=== PATIENT | male | born 1935 | race Two or more races ===

== ENCOUNTER 2018-07-11 17:26 | Inpatient (IN) | payer SELFPAY ==
[~2018-07-11] VITALS: Ht 167.6 cm; Wt 67.2 kg
[2018-07-11 17:30] VITALS: BP 102/70
[2018-07-11] MEDS ORDERED: NKM (17:34)
[2018-07-11] MEDS ORDERED: Ampicillin/Sulbactam Sod 3 GM in NS 110 ML IV SCH (17:45)
[2018-07-11] MEDS ORDERED: Naloxone 1mg/ml 2ml IVP ONE (17:45)
[2018-07-11 18:16] LABS: ANION GAP 13 mmol/L (5-15); BLOOD UREA NITROGEN 34 mg/dL (7-18); CALCIUM 9.5 MG/DL (8.5-10.1); CARBON DIOXIDE 23 MMOL/L (21-32); CHLORIDE 107 MMOL/L (98-107); CREATININE 2.1 MG/DL (0.55-1.30); HEMATOCRIT 41.9 % (42.0-52.0); HEMOGLOBIN 14.5 G/DL (14.2-18.0); MEAN CORPUSCULAR VOLUME 93 FL (80-99); PLATELET COUNT 161 K/UL (150-450); POTASSIUM 3.3 MMOL/L (3.5-5.1); RED CELL DISTRIBUTION WIDTH 11.1 % (11.6-14.8); SODIUM 143 MMOL/L (136-145)
[2018-07-11 18:32] LABS: ALANINE AMINOTRANSFERASE 50 U/L (12-78); ALBUMIN 3.3 G/DL (3.4-5.0); ALBUMIN/GLOBULIN RATIO 0.8 (1.0-2.7); ALKALINE PHOSPHATASE 61 U/L (46-116); ASPARTATE AMINO TRANSFERASE 41 U/L (15-37); BILIRUBIN,TOTAL 0.6 MG/DL (0.2-1.0); CKMB 1.6 NG/ML (0.0-3.6); CREATINE KINASE 214 U/L (26-308); WHITE BLOOD COUNT 22.7 K/UL (4.8-10.8)
--- NOTE | 2018-07-11 18:38 | Diagnostic Imaging Report ---
EXAM: XR Chest, 1 View CLINICAL HISTORY: AMS TECHNIQUE: Frontal view of the chest. COMPARISON: No relevant prior studies available. FINDINGS: Lungs: Subsegmental left base atelectasis.. Pleural space: Unremarkable. No pneumothorax. Heart: Unremarkable. No cardiomegaly. Mediastinum: Calcified aortic knob. Bones/joints: Unremarkable. IMPRESSION: Subsegmental left base atelectasis.
--- NOTE | 2018-07-11 18:43 | Diagnostic Imaging Report ---
EXAM: CT Head Without Intravenous Contrast CLINICAL HISTORY: AMS TECHNIQUE: Axial computed tomography images of the head/brain without intravenous contrast. CTDI is 70.38 mGy and DLP is 1393 mGy-cm One or more of the following dose reduction techniques were used: automated exposure control, adjustment of the mA and/or kV according to patient size, use of iterative reconstruction technique. COMPARISON: No relevant prior studies available. FINDINGS: Brain: No intracranial hemorrhage or mass effect. Involutional and microvascular ischemic changes Ventricles: Unremarkable. No ventriculomegaly. Bones/joints: Unremarkable. No acute fracture. Soft tissues: Unremarkable. Sinuses: Unremarkable as visualized. No acute sinusitis. Mastoid air cells: Unremarkable as visualized. No mastoid effusion. IMPRESSION: No acute intracranial process
--- NOTE | 2018-07-11 20:46 | Diagnostic Imaging Report ---
EXAM: CT Abdomen and Pelvis Without Intravenous Contrast CLINICAL HISTORY: ABD PAIN TECHNIQUE: Axial computed tomography images of the abdomen and pelvis without intravenous contrast. CTDI is 10.38 mGy and DLP is 574 mGy-cm One or more of the following dose reduction techniques were used: automated exposure control, adjustment of the mA and/or kV according to patient size, use of iterative reconstruction technique. COMPARISON: No relevant prior studies available. FINDINGS: Mild basilar atelectasis. Coronary atherosclerosis. Status post cholecystectomy. No clear biliary dilation. Pancreatic atrophy without acute inflammation. Left perinephric stranding is more pronounced than on the right side. Correlate for any signs or symptoms of pyelonephritis. No urolithiasis or hydronephrosis. Small mid zone right renal cyst. Fecal retention with perirectal edema. Suspect impaction with stercoral proctitis. No free air or abscess. Unremarkable appendix. Prostatomegaly without pathologic bladder distention. Small fatty umbilical hernia. No acute fracture. IMPRESSION: Fecal impaction with stercoral proctitis. Left perinephric stranding is more pronounced than right. Correlate for signs or symptoms of pyelonephritis. Other incidental findings as detailed above.
[2018-07-11] MEDS ORDERED: Lidocaine 1% Plain 30 ml INJ ONE (21:51)
[2018-07-11] MEDS ORDERED: Meropenem 1 GM in NS 55 ML IVPB SCH (22:00)
--- NOTE | 2018-07-11 22:39 | Diagnostic Imaging Report ---
EXAM: XR Chest, 1 View CLINICAL HISTORY: LINE TECHNIQUE: Frontal view of the chest. COMPARISON: No relevant prior studies available. FINDINGS: Lungs: Mild basilar atelectasis again noted. Pleural space: No pneumothorax. Heart: Unremarkable. No cardiomegaly. Mediastinum: Right internal jugular central venous catheter, tip repositioned Cavoatrial junction.. Bones/joints: Unremarkable. IMPRESSION: Appropriately positioned right IJ CVC. No pneumothorax.
[2018-07-11 22:45] VITALS: BP 123/109
[2018-07-11] MEDS: Enoxaparin 30mg Inj SUBQ SCH (23:24)
--- NOTE | 2018-07-11 23:46 | Emergency Room Report ---
History of Present Illness General Chief Complaint: General Complaint Source: Patient Present Illness HPI Patient is 82-year-old male brought in by EMS after increased altered mental status. Patient prior history of Alzheimer disease. He had prior history of similar symptoms when he had a urinary tract infection. Patient has the been noted to have increased confusion. The patient had been the previously had the surgery for prostate.The patient noted be full code.The history is obtained from EMS. Allergies: Coded Allergies: No Known Allergies (Unverified , 07/11/18) Patient History Past Medical History: see triage record Reviewed Nursing Documentation: PMH: Agreed; PSxH: Agreed Nursing Documentation-PM Past Medical History: No History, Except For History Of Psychiatric Problem: Yes - dementia Review of Systems All Other Systems: limited - by mental status Physical Exam Vital Signs Date Time Temp Pulse Resp B/P (MAP) Pulse Ox O2 Delivery O2 Flow Rate FiO2 07/11/18 17:22 97.8 110 18 102/70 97 Room Air 97.9 Sp02 EP Interpretation: reviewed, normal General Appearance: normal inspection, lethargic, Chronically Ill Head: atraumatic Eyes: bilateral eye other - pinpoint ENT: normal ENT inspection, hearing grossly normal, normal voice Neck: normal inspection, supple, no bony tend, limited range of motion Respiratory: normal inspection, lungs clear, normal breath sounds, no respiratory distress, no retraction, no wheezing Cardiovascular #1: regular rate, rhythm, no edema Gastrointestinal: normal inspection, normal bowel sounds, non tender, soft, no guarding, no hernia Genitourinary: no CVA tenderness Musculoskeletal: normal inspection, back normal, normal range of motion Neurologic: motor weakness, other - aphasic Psychiatric: normal inspection, judgement/insight normal, mood/affect normal Skin: normal inspection, normal color, no rash Procedures Critical Care Time Critical Care Time Patient had a critical medical condition which untreated could potentially result in life or limb threatening injury. Total critical care time excluding procedures approximately 45 minutes. Central Line Central Line : Consent: Emergent Central Line Lumen: triple Maximal Sterile Barrier Tech: yes cap, yes mask, yes sterile gown, yes sterile gloves, yes large sterile sheet, yes hand hygiene, yes chlorhexidine prep Central Line Postion: internal jugular (R) Anesthesia: local cc's of anesthesia: 3 Complications: none Central Line Post Position: sutured, good blood return, position confirmed w / CXR Attempts: One Patient Tolerated: Well Complications: None Medical Decision Making Diagnostic Impression: Primary Impression: Septic shock Additional Impressions: Acute renal failure (ARF) Dehydration ER Course Patient presented for fever. Differential diagnosis included wasn't limited to pneumonia, urinary tract infection, drug fever, allergic reaction, sepsis, cholecystitis, among others.Because of complexity of patient's case laboratory testing and imaging studies were ordered. The CT the head read by radiology showed atrophic changes without evident CVA or intracranial hemorrhage. Patient was given IV fluids he started on IV antibiotics after blood cultures. The central venous catheter was placed due to hypotension after consent from daughter the post procedure chest x-ray showed adequate line placement.The patient was noted to have slight improvement in his mental status after fluid bolus. Doctor Jose Arteaga was contacted for inpatient managment due to panel physician. Labs Test 07/11/18 17:35 07/11/18 22:00 White Blood Count 22.7 K/UL (4.8-10.8) Red Blood Count 4.50 M/UL (4.70-6.10) Hemoglobin 14.5 G/DL (14.2-18.0) Hematocrit 41.9 % (42.0-52.0) Mean Corpuscular Volume 93 FL (80-99) Mean Corpuscular Hemoglobin 32.2 PG (27.0-31.0) Mean Corpuscular Hemoglobin Concent 34.5 G/DL (32.0-36.0) Red Cell Distribution Width 11.1 % (11.6-14.8) Platelet Count 161 K/UL (150-450) Mean Platelet Volume 5.8 FL (6.5-10.1) Neutrophils (%) (Auto) % (45.0-75.0) Lymphocytes (%) (Auto) % (20.0-45.0) Monocytes (%) (Auto) % (1.0-10.0) Eosinophils (%) (Auto) % (0.0-3.0) Basophils (%) (Auto) % (0.0-2.0) Differential Total Cells Counted 100 Neutrophils % (Manual) 78 % (45-75) Lymphocytes % (Manual) 4 % (20-45) Monocytes % (Manual) 3 % (1-10) Eosinophils % (Manual) 0 % (0-3) Basophils % (Manual) 0 % (0-2) Band Neutrophils 15 % (0-8) Platelet Estimate Adequate Platelet Morphology Normal Red Blood Cell Morphology Normal Sodium Level 143 MMOL/L (136-145) Potassium Level 3.3 MMOL/L (3.5-5.1) Chloride Level 107 MMOL/L (98-107) Carbon Dioxide Level 23 MMOL/L (21-32) Anion Gap 13 mmol/L (5-15) Blood Urea Nitrogen 34 mg/dL (7-18) Creatinine 2.1 MG/DL (0.55-1.30) Estimat Glomerular Filtration Rate mL/min (>60) Glucose Level 137 MG/DL (74-106) Calcium Level 9.5 MG/DL (8.5-10.1) Total Bilirubin 0.6 MG/DL (0.2-1.0) Aspartate Amino Transf (AST/SGOT) 41 U/L (15-37) Alanine Aminotransferase (ALT/SGPT) 50 U/L (12-78) Alkaline Phosphatase 61 U/L (46-116) Total Creatine Kinase 214 U/L (26-308) Creatine Kinase MB 1.6 NG/ML (0.0-3.6) Creatine Kinase MB Relative Index 0.7 Troponin I 0.027 ng/mL (0.000-0.056) Total Protein 7.3 G/DL (6.4-8.2) Albumin 3.3 G/DL (3.4-5.0) Globulin 4.0 g/dL Albumin/Globulin Ratio 0.8 (1.0-2.7) Lactic Acid Level 3.00 mmol/L (0.66-2.22) Last Vital Signs Date Time Temp Pulse Resp B/P (MAP) Pulse Ox O2 Delivery O2 Flow Rate FiO2 07/11/18 23:25 113/74 07/11/18 23:00 77 07/11/18 17:30 97.9 18 97 Room Air 97.9 Status: unchanged Disposition: ADMITTED INPATIENT Condition: Critical Referrals: NOT CHOSEN IPA/,REFERRING (PCP) Fran Stephen MD Jul 11, 2018 23:46
[2018-07-11] MEDS: Meropenem 500 MG in NS 55 ML IV SCH (23:50)
[2018-07-12] VITALS (39 sets, daily range): BP systolic 66–155; BP diastolic 44–79
[2018-07-12] MEDS ORDERED: Vancomycin 1.5gm/D5W 250ml 250 ML IVPB ONE (02:00)
--- NOTE | 2018-07-12 02:00 | History and Physical Report ---
DATE OF ADMISSION: 07/11/2018 REASON FOR ADMISSION: 1. Hypotension. 2. Septic shock. HISTORY OF PRESENT ILLNESS: The patient is an 82-year-old gentleman brought in by his family for further evaluation and management due to progressive deterioration in mental status throughout the day. In the emergency room, it was noted that the patient had an extremely elevated white count of 22.7 with a creatinine of 2.1, and the patient was hypotensive. Imaging of CT of the abdomen and pelvis was significant for fecal retention with perirectal edema with stercoral proctitis along with possible left perinephric stranding with possibility pyelonephritis. In the emergency room, Shannon catheters were unable to be passed. The patient is being transferred to intensive care unit and being initiated on broad-spectrum antibiotics, fluid resuscitation, and IV pressor support. ALLERGIES: No known drug allergies. PAST MEDICAL HISTORY: 1. Recurrent UTIs. 2. BPH. PAST SURGICAL HISTORY: Prostate surgery. FAMILY HISTORY: Hypertension and diabetes. REVIEW OF SYSTEMS: Cannot obtain as patient is not talking coherently. LABORATORY DATA: Laboratories dated 07/11/2018, white cell count 22.7, hemoglobin 14.5, and platelet count 161,000. Sodium 143, potassium 3.3, BUN 34, creatinine 2.1, and glucose 137. Lactic acid 3.6. AST and ALT 41 and 50 respectively. Troponin 0.027. PHYSICAL EXAMINATION: VITAL SIGNS: Blood pressure 102/70, pulse ox 97% on room air, respiratory rate 18, heart rate 110, and temperature 97.9 degrees. GENERAL: The patient is somnolent, but arousable and confused. HEENT: Extraocular muscles intact. No lymphadenopathy. Oropharyngeal mucosa clear and dry. CARDIOVASCULAR: S1, S2. No rubs or gallops. PULMONARY: Clear to auscultation bilaterally. No rales, rhonchi, or wheezes. ABDOMEN: Nondistended and nontender. Good bowel sounds. EXTREMITIES: No edema noted. ASSESSMENT AND PLAN: 1. Septic shock, most likely secondary to urinary retention. Emergency room physician is attempting to pass Shannon catheter. If unsuccessful, he will call Urology. At this time, Infectious Disease has been consulted for broad-spectrum antibiotics for possible pyelonephritis, urinary retention, and urosepsis. We will initiate Levophed and stabilize hemodynamically with IV fluids. 2. Urosepsis, treated. IV antibiotics broad-spectrum per Infectious Disease. 3. Acute kidney injury at this time, most likely secondary multifactorial due to ischemic acute tubular necrosis from hypotension and underlying sepsis. Continue to aggressively manage hypotension with Levophed and IV fluids. Antibiotics will be initiated by Infectious Disease. Pulmonary Critical Care also to assist with hemodynamic stability. 4. History of Benign prostatic hypertrophy. A Shannon catheter cannot be placed by emergency room physician. Urologist will be consulted. 5. Deep venous thrombosis prophylaxis with Lovenox. Jose Arteaga MD DR: NARCISA JOB#: [id number] CC: GWEN
[2018-07-12 04:40] LABS: HEMATOCRIT 37.9 % (42.0-52.0); HEMOGLOBIN 12.8 G/DL (14.2-18.0); MEAN CORPUSCULAR VOLUME 92 FL (80-99); PLATELET COUNT 143 K/UL (150-450); RED BLOOD COUNT 4.14 M/UL (4.70-6.10); RED CELL DISTRIBUTION WIDTH 11.3 % (11.6-14.8)
[2018-07-12 04:55] LABS: WHITE BLOOD COUNT 24.6 K/UL (4.8-10.8)
[2018-07-12 05:01] LABS: ANION GAP 10 mmol/L (5-15); BLOOD UREA NITROGEN 31 mg/dL (7-18); CALCIUM 8.3 MG/DL (8.5-10.1); CARBON DIOXIDE 22 MMOL/L (21-32); CHLORIDE 111 MMOL/L (98-107); CREATININE 1.6 MG/DL (0.55-1.30); POTASSIUM 3.9 MMOL/L (3.5-5.1); SODIUM 143 MMOL/L (136-145)
--- NOTE | 2018-07-12 07:35 | Nephrology Progress Note ---
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 Family at bedside Objective Last 24 Hour Vital Signs Date Time Temp Pulse Resp B/P (MAP) Pulse Ox O2 Delivery O2 Flow Rate FiO2 07/12/18 07:00 87 19 104/55 (71) 98 07/12/18 06:30 78 18 114/51 (72) 100 07/12/18 06:00 70 18 111/54 (73) 100 07/12/18 05:30 68 18 121/54 (76) 100 07/12/18 05:00 64 18 151/60 (90) 100 07/12/18 04:30 62 18 155/54 (87) 100 07/12/18 04:00 74 07/12/18 04:00 Room Air 07/12/18 04:00 98.7 73 18 84/49 (61) 100 98.7 07/12/18 03:30 70 18 122/50 (74) 100 07/12/18 03:00 76 18 109/52 (71) 100 07/12/18 02:30 70 18 109/52 (71) 100 07/12/18 02:00 81 18 106/59 (75) 100 07/12/18 01:30 69 18 96/59 (71) 100 07/12/18 01:15 69 18 95/58 (70) 100 07/12/18 01:00 69 18 154/63 (93) 100 07/12/18 00:45 69 18 154/63 (93) 100 07/12/18 00:30 69 18 125/58 (80) 100 07/12/18 00:15 60 18 66/44 (51) 100 07/12/18 00:13 Room Air 07/12/18 00:00 62 18 125/58 (80) 100 07/12/18 00:00 Room Air 07/12/18 00:00 66 07/11/18 23:50 74/48 07/11/18 23:25 113/74 07/11/18 23:20 97.7 79 15 102/65 100 Room Air 07/11/18 23:00 77 07/11/18 22:45 98.1 86 18 123/109 (114) 100 98.1 07/11/18 17:30 97.9 110 18 102/70 97 Room Air 97.9 07/11/18 17:22 97.8 110 18 102/70 97 Room Air 97.9 Intake and Output 07/11/18 07/12/18 19:00 07:00 Intake Total 1060.0 ml Output Total 150 ml Balance 910.0 ml Intake Oral 0 ml IV Total 1060.0 ml Output Urine Total 150 ml # Voids 4 Laboratory Tests 07/11/18 17:35: White Blood Count 22.7*H, Red Blood Count 4.50L, Hemoglobin 14.5, Hematocrit 41.9L, Mean Corpuscular Volume 93, Mean Corpuscular Hemoglobin 32.2H, Mean Corpuscular Hemoglobin Concent 34.5, Red Cell Distribution Width 11.1L, Platelet Count 161, Mean Platelet Volume 5.8L, Neutrophils (%) (Auto) , Lymphocytes (%) (Auto) , Monocytes (%) (Auto) , Eosinophils (%) (Auto) , Basophils (%) (Auto) , Differential Total Cells Counted 100, Neutrophils % ( Manual) 78H, Lymphocytes % (Manual) 4L, Monocytes % (Manual) 3, Eosinophils % ( Manual) 0, Basophils % (Manual) 0, Band Neutrophils 15H, Platelet Estimate Adequate, Platelet Morphology Normal, Red Blood Cell Morphology Normal, Sodium Level 143, Potassium Level 3.3L, Chloride Level 107, Carbon Dioxide Level 23, Anion Gap 13, Blood Urea Nitrogen 34H, Creatinine 2.1H, Estimat Glomerular Filtration Rate , Glucose Level 137H, Lactic Acid Level 3.60H, Calcium Level 9.5 , Total Bilirubin 0.6, Aspartate Amino Transf (AST/SGOT) 41H, Alanine Aminotransferase (ALT/SGPT) 50, Alkaline Phosphatase 61, Total Creatine Kinase 214, Creatine Kinase MB 1.6, Creatine Kinase MB Relative Index 0.7, Troponin I 0.027, Total Protein 7.3, Albumin 3.3L, Globulin 4.0, Albumin/Globulin Ratio 0.8L 07/11/18 22:00: Lactic Acid Level 3.00H 07/12/18 03:50: White Blood Count 24.6*H, Red Blood Count 4.14L, Hemoglobin 12.8L, Hematocrit 37.9L, Mean Corpuscular Volume 92, Mean Corpuscular Hemoglobin 31.0, Mean Corpuscular Hemoglobin Concent 33.8, Red Cell Distribution Width 11.3L, Platelet Count 143L, Mean Platelet Volume 6.3L, Neutrophils (%) (Auto) , Lymphocytes (%) (Auto) , Monocytes (%) (Auto) , Eosinophils (%) (Auto) , Basophils (%) (Auto) , Neutrophils % (Manual) [Pending], Lymphocytes % (Manual) [Pending], Platelet Estimate [Pending], Platelet Morphology [Pending], Sodium Level 143, Potassium Level 3.9, Chloride Level 111H, Carbon Dioxide Level 22, Anion Gap 10, Blood Urea Nitrogen 31H, Creatinine 1.6H, Estimat Glomerular Filtration Rate , Glucose Level 136H, Lactic Acid Level 2.50H, Calcium Level 8.3L Height (Feet): 5 Height (Inches): 6.00 Weight (Pounds): 143 General Appearance: lethargic, confused EENT: normal ENT inspection Neck: normal alignment, supple Cardiovascular: normal rate, regular rhythm Respiratory/Chest: lungs clear, normal breath sounds Abdomen: non tender, soft Edema: no edema noted Arm (L), no edema noted Arm (R), no edema noted Leg (L), no edema noted Leg (R), no edema noted Pedal (L), no edema noted Pedal (R), no edema noted Generalized Jose Arteaga MD Jul 12, 2018 07:35
[2018-07-12] MEDS ORDERED: Tubing IV Secondary IV ONE (10:23)
[2018-07-12] MEDS ORDERED: NS 275ml ONE (10:23)
--- NOTE | 2018-07-12 10:59 | Critical Care Progress Note ---
Assessment/Plan Assessment/Plan severe sepsis hypotension shock leukocytosis TRUDI acute encephalopathy PLAN agree with pressors IV hydration IV antibiotics ICU care will monitor and assist medications/laboratory data/nursing notes/ICU care reviewed in detail note reviewed and edited care discussed with RN and RT Critical Care - Subjective ROS Limited/Unobtainable: Yes Condition: critical I&O: Intake and Output 07/11/18 07/12/18 19:00 07:00 Intake Total 1192.5 ml Output Total 150 ml Balance 1042.5 ml Intake Oral 0 ml IV Total 1192.5 ml Output Urine Total 150 ml # Voids 4 Critical Care - Objective Last 24 Hour Vital Signs Date Time Temp Pulse Resp B/P (MAP) Pulse Ox O2 Delivery O2 Flow Rate FiO2 07/12/18 10:00 85 19 103/50 (67) 96 07/12/18 09:00 95 19 88/50 (63) 97 07/12/18 08:00 Room Air 07/12/18 08:00 69 07/12/18 08:00 98.8 69 18 109/53 (71) 100 98.8 07/12/18 07:00 87 19 104/55 (71) 98 07/12/18 06:30 78 18 114/51 (72) 100 07/12/18 06:00 70 18 111/54 (73) 100 07/12/18 05:30 68 18 121/54 (76) 100 07/12/18 05:00 64 18 151/60 (90) 100 07/12/18 04:30 62 18 155/54 (87) 100 07/12/18 04:00 74 07/12/18 04:00 Room Air 07/12/18 04:00 98.7 73 18 84/49 (61) 100 98.7 07/12/18 03:30 70 18 122/50 (74) 100 07/12/18 03:00 76 18 109/52 (71) 100 07/12/18 02:30 70 18 109/52 (71) 100 07/12/18 02:00 81 18 106/59 (75) 100 07/12/18 01:30 69 18 96/59 (71) 100 07/12/18 01:15 69 18 95/58 (70) 100 07/12/18 01:00 69 18 154/63 (93) 100 07/12/18 00:45 69 18 154/63 (93) 100 07/12/18 00:30 69 18 125/58 (80) 100 07/12/18 00:15 60 18 66/44 (51) 100 07/12/18 00:13 Room Air 07/12/18 00:00 62 18 125/58 (80) 100 07/12/18 00:00 Room Air 07/12/18 00:00 66 07/11/18 23:50 74/48 07/11/18 23:25 113/74 07/11/18 23:20 97.7 79 15 102/65 100 Room Air 07/11/18 23:00 77 07/11/18 22:45 98.1 86 18 123/109 (114) 100 98.1 07/11/18 17:30 97.9 110 18 102/70 97 Room Air 97.9 07/11/18 17:22 97.8 110 18 102/70 97 Room Air 97.9 Labs: WDWN acutely ill clear breath sounds bilaterally without rhonchi or wheeze [id number] without MRG NABS nontender no HSM no CCE reduced LOC Micro: Microbiology Date/Time Source Procedure Growth Status 07/11/18 23:00 Rectum Received Accucheck: 131 César Humphreys MD Jul 12, 2018 10:59
[2018-07-12] MEDS: Meropenem 500 MG in NS 55 ML IV SCH ×2 (12:29→23:40)
--- NOTE | 2018-07-12 12:48 | Infectious Diseases Prog Note ---
Assessment/Plan Problems: (1) Acute pyelonephritis Assessment & Plan: with left perinephrial stranding , complicated with sepsis, will start meropenem empirically pending cultures, will send urine culture, will order renal US (2) Septic shock Assessment & Plan: due to the above , will start vacomycin and meropenem pending blood culture (3) Acute renal failure (ARF) Assessment & Plan: due to sepsis , continue hydration, monitor renal function (4) Dehydration Assessment & Plan: continue IVF for hydration , monitor lytes (5) Acute encephalopathy Assessment & Plan: due to the above, continue hydration ad antibiotics , continue neuro check Subjective Allergies: Coded Allergies: No Known Allergies (Unverified , 07/11/18) Objective Vital Signs Last 24 Hour Vital Signs Date Time Temp Pulse Resp B/P (MAP) Pulse Ox O2 Delivery O2 Flow Rate FiO2 07/12/18 12:00 Room Air 07/12/18 12:00 98.2 88 18 106/55 (72) 100 98.2 07/12/18 11:00 92 19 95/49 (64) 98 07/12/18 10:00 85 19 103/50 (67) 96 07/12/18 09:00 95 19 88/50 (63) 97 07/12/18 08:00 Room Air 07/12/18 08:00 69 07/12/18 08:00 98.8 69 18 109/53 (71) 100 98.8 07/12/18 07:00 87 19 104/55 (71) 98 07/12/18 06:30 78 18 114/51 (72) 100 07/12/18 06:00 70 18 111/54 (73) 100 07/12/18 05:30 68 18 121/54 (76) 100 07/12/18 05:00 64 18 151/60 (90) 100 07/12/18 04:30 62 18 155/54 (87) 100 07/12/18 04:00 74 07/12/18 04:00 Room Air 07/12/18 04:00 98.7 73 18 84/49 (61) 100 98.7 07/12/18 03:30 70 18 122/50 (74) 100 07/12/18 03:00 76 18 109/52 (71) 100 07/12/18 02:30 70 18 109/52 (71) 100 07/12/18 02:00 81 18 106/59 (75) 100 07/12/18 01:30 69 18 96/59 (71) 100 07/12/18 01:15 69 18 95/58 (70) 100 07/12/18 01:00 69 18 154/63 (93) 100 07/12/18 00:45 69 18 154/63 (93) 100 07/12/18 00:30 69 18 125/58 (80) 100 07/12/18 00:15 60 18 66/44 (51) 100 07/12/18 00:13 Room Air 07/12/18 00:00 62 18 125/58 (80) 100 07/12/18 00:00 Room Air 07/12/18 00:00 66 07/11/18 23:50 74/48 07/11/18 23:25 113/74 07/11/18 23:20 97.7 79 15 102/65 100 Room Air 07/11/18 23:00 77 07/11/18 22:45 98.1 86 18 123/109 (114) 100 98.1 07/11/18 17:30 97.9 110 18 102/70 97 Room Air 97.9 07/11/18 17:22 97.8 110 18 102/70 97 Room Air 97.9 Height (Feet): 5 Height (Inches): 6.00 Weight (Pounds): 143 Microbiology Date/Time Source Procedure Growth Status 07/11/18 23:00 Rectum Received Laboratory Tests Test 07/11/18 17:35 07/11/18 22:00 07/12/18 03:50 07/12/18 10:00 White Blood Count 22.7 K/UL (4.8-10.8) *H 24.6 K/UL (4.8-10.8) *H Red Blood Count 4.50 M/UL (4.70-6.10) L 4.14 M/UL (4.70-6.10) L Hemoglobin 14.5 G/DL (14.2-18.0) 12.8 G/DL (14.2-18.0) L Hematocrit 41.9 % (42.0-52.0) L 37.9 % (42.0-52.0) L Mean Corpuscular Volume 93 FL (80-99) 92 FL (80-99) Mean Corpuscular Hemoglobin 32.2 PG (27.0-31.0) H 31.0 PG (27.0-31.0) Mean Corpuscular Hemoglobin Concent 34.5 G/DL (32.0-36.0) 33.8 G/DL (32.0-36.0) Red Cell Distribution Width 11.1 % (11.6-14.8) L 11.3 % (11.6-14.8) L Platelet Count 161 K/UL (150-450) 143 K/UL (150-450) L Mean Platelet Volume 5.8 FL (6.5-10.1) L 6.3 FL (6.5-10.1) L Neutrophils (%) (Auto) % (45.0-75.0) % (45.0-75.0) Lymphocytes (%) (Auto) % (20.0-45.0) % (20.0-45.0) Monocytes (%) (Auto) % (1.0-10.0) % (1.0-10.0) Eosinophils (%) (Auto) % (0.0-3.0) % (0.0-3.0) Basophils (%) (Auto) % (0.0-2.0) % (0.0-2.0) Differential Total Cells Counted 100 100 Neutrophils % (Manual) 78 % (45-75) H 62 % (45-75) Lymphocytes % (Manual) 4 % (20-45) L 3 % (20-45) L Monocytes % (Manual) 3 % (1-10) 2 % (1-10) Eosinophils % (Manual) 0 % (0-3) 0 % (0-3) Basophils % (Manual) 0 % (0-2) 0 % (0-2) Band Neutrophils 15 % (0-8) H 33 % (0-8) H Platelet Estimate Adequate Decreased L Platelet Morphology Normal Normal Red Blood Cell Morphology Normal Normal Sodium Level 143 MMOL/L (136-145) 143 MMOL/L (136-145) Potassium Level 3.3 MMOL/L (3.5-5.1) L 3.9 MMOL/L (3.5-5.1) Chloride Level 107 MMOL/L (98-107) 111 MMOL/L (98-107) H Carbon Dioxide Level 23 MMOL/L (21-32) 22 MMOL/L (21-32) Anion Gap 13 mmol/L (5-15) 10 mmol/L (5-15) Blood Urea Nitrogen 34 mg/dL (7-18) H 31 mg/dL (7-18) H Creatinine 2.1 MG/DL (0.55-1.30) H 1.6 MG/DL (0.55-1.30) H Estimat Glomerular Filtration Rate mL/min (>60) mL/min (>60) Glucose Level 137 MG/DL (74-106) H 136 MG/DL (74-106) H Lactic Acid Level 3.60 mmol/L (0.4-2.0) H 3.00 mmol/L (0.66-2.22) H 2.50 mmol/L (0.4-2.0) H 1.70 mmol/L (0.4-2.0) Calcium Level 9.5 MG/DL (8.5-10.1) 8.3 MG/DL (8.5-10.1) L Total Bilirubin 0.6 MG/DL (0.2-1.0) Aspartate Amino Transf (AST/SGOT) 41 U/L (15-37) H Alanine Aminotransferase (ALT/SGPT) 50 U/L (12-78) Alkaline Phosphatase 61 U/L (46-116) Total Creatine Kinase 214 U/L (26-308) Creatine Kinase MB 1.6 NG/ML (0.0-3.6) Creatine Kinase MB Relative Index 0.7 Troponin I 0.027 ng/mL (0.000-0.056) Total Protein 7.3 G/DL (6.4-8.2) Albumin 3.3 G/DL (3.4-5.0) L Globulin 4.0 g/dL Albumin/Globulin Ratio 0.8 (1.0-2.7) L Current Medications Medications (Trade) Dose Ordered Sig/Nahum Route PRN Reason Start Time Stop Time Status Last Admin Dose Admin Acetaminophen (Tylenol) 650 mg Q4H PRN ORAL Mild Pain (Pain Scale 1-3) 07/11/18 21:30 08/10/18 21:29 Dextrose (Dextrose 50%) 25 ml Q30M PRN IV Hypoglycemia 07/11/18 21:30 08/10/18 21:29 Dextrose (Dextrose 50%) 50 ml Q30M PRN IV Hypoglycemia 07/11/18 21:30 08/10/18 21:29 Enoxaparin Sodium (Lovenox) 30 mg Q24H SUBQ 07/11/18 22:00 08/10/18 21:59 07/11/18 23:24 Famotidine (Pepcid) 40 mg DAILY ORAL 07/12/18 09:00 08/11/18 08:59 07/12/18 08:24 Meropenem 500 mg/ Sodium Chloride 55 ml @ 110 mls/hr Q12H IV 07/12/18 00:00 07/17/18 00:00 07/12/18 12:29 Norepinephrine Bitartrate 4 mg/ Dextrose 250 ml @ 0 mls/hr Q24H IV 07/11/18 21:30 08/10/18 21:29 07/11/18 23:50 Ondansetron HCl (Zofran) 4 mg Q6H PRN IVP Nausea & Vomiting 07/11/18 21:30 08/10/18 21:29 Sodium Chloride 1,000 ml @ 125 mls/hr Q8H IVLG 07/11/18 22:19 08/10/18 22:18 07/12/18 12:32 Vancomycin HCl (Vanco rx to dose) 1 ea DAILY PRN MISC Per rx protocol 07/11/18 22:00 08/10/18 21:59 Vancomycin HCl 1 gm/Dextrose 275 ml @ 183.708 mls/hr Q24H IVPB 07/13/18 02:00 07/18/18 01:59 Deepti Biggs M.D. Jul 12, 2018 12:48
--- NOTE | 2018-07-12 12:58 | Consultation ---
History of Present Illness General Date patient seen: Jul 12, 2018 Chief Complaint: General Complaint Present Illness HPI 82-year-old male with medical history as below brought in by EMS after increased altered mental status. Patient prior history of Alzheimer disease. He had prior history of similar symptoms when he had a urinary tract infection. Patient has the been noted to have increased confusion. The patient had been the previously had the surgery for prostate. Noted to be in septic shock upon admission. leukocytosis. CT as below. hypotensive. central line placed and admitted to ICU for care. Surgery called to evaluate as CT demonstrated fecal impaction and surrounding inflammation. patient seen, chart reviewed, patient examined. Allergies: Coded Allergies: No Known Allergies (Unverified , 07/11/18) Medication History Scheduled No Known Medications* (NKM - No Known Medications*), 0 ., (Reported) Patient History Limited by: medical condition History Provided By: Family Member, Medical Record, PMD Healthcare decision maker Resuscitation status Full Code Advanced Directive on File Past Medical/Surgical History Past Medical/Surgical History: (1) Dehydration (2) Acute renal failure (ARF) (3) Septic shock (4) Acute pyelonephritis (5) Acute encephalopathy Review of Systems All Other Systems: negative except mentioned in HPI Physical Exam General Appearance: no apparent distress Lines, tubes and drains: central line HEENT: mucous membranes moist Neck: normal inspection Respiratory/Chest: normal breath sounds Cardiovascular/Chest: normal rate Abdomen: soft, no organomegaly, no mass Extremities: normal inspection Skin Exam: warm/dry Neurologic: alert Last 24 Hour Vital Signs Date Time Temp Pulse Resp B/P (MAP) Pulse Ox O2 Delivery O2 Flow Rate FiO2 07/12/18 12:00 86 07/12/18 12:00 Room Air 07/12/18 12:00 98.2 88 18 106/55 (72) 100 98.2 07/12/18 11:00 92 19 95/49 (64) 98 07/12/18 10:00 85 19 103/50 (67) 96 07/12/18 09:00 95 19 88/50 (63) 97 07/12/18 08:00 Room Air 07/12/18 08:00 69 07/12/18 08:00 98.8 69 18 109/53 (71) 100 98.8 07/12/18 07:00 87 19 104/55 (71) 98 07/12/18 06:30 78 18 114/51 (72) 100 07/12/18 06:00 70 18 111/54 (73) 100 07/12/18 05:30 68 18 121/54 (76) 100 07/12/18 05:00 64 18 151/60 (90) 100 07/12/18 04:30 62 18 155/54 (87) 100 07/12/18 04:00 74 07/12/18 04:00 Room Air 07/12/18 04:00 98.7 73 18 84/49 (61) 100 98.7 07/12/18 03:30 70 18 122/50 (74) 100 07/12/18 03:00 76 18 109/52 (71) 100 07/12/18 02:30 70 18 109/52 (71) 100 07/12/18 02:00 81 18 106/59 (75) 100 07/12/18 01:30 69 18 96/59 (71) 100 07/12/18 01:15 69 18 95/58 (70) 100 07/12/18 01:00 69 18 154/63 (93) 100 07/12/18 00:45 69 18 154/63 (93) 100 07/12/18 00:30 69 18 125/58 (80) 100 07/12/18 00:15 60 18 66/44 (51) 100 07/12/18 00:13 Room Air 07/12/18 00:00 62 18 125/58 (80) 100 07/12/18 00:00 Room Air 07/12/18 00:00 66 07/11/18 23:50 74/48 07/11/18 23:25 113/74 07/11/18 23:20 97.7 79 15 102/65 100 Room Air 07/11/18 23:00 77 07/11/18 22:45 98.1 86 18 123/109 (114) 100 98.1 07/11/18 17:30 97.9 110 18 102/70 97 Room Air 97.9 07/11/18 17:22 97.8 110 18 102/70 97 Room Air 97.9 Intake and Output 07/11/18 07/12/18 18:59 06:59 Intake Total 1060.0 ml Output Total 150 ml Balance 910.0 ml Intake Oral 0 ml IV Total 1060.0 ml Output Urine Total 150 ml # Voids 4 Laboratory Tests Test 07/11/18 17:35 07/11/18 22:00 07/12/18 03:50 07/12/18 10:00 White Blood Count 22.7 K/UL (4.8-10.8) *H 24.6 K/UL (4.8-10.8) *H Red Blood Count 4.50 M/UL (4.70-6.10) L 4.14 M/UL (4.70-6.10) L Hemoglobin 14.5 G/DL (14.2-18.0) 12.8 G/DL (14.2-18.0) L Hematocrit 41.9 % (42.0-52.0) L 37.9 % (42.0-52.0) L Mean Corpuscular Volume 93 FL (80-99) 92 FL (80-99) Mean Corpuscular Hemoglobin 32.2 PG (27.0-31.0) H 31.0 PG (27.0-31.0) Mean Corpuscular Hemoglobin Concent 34.5 G/DL (32.0-36.0) 33.8 G/DL (32.0-36.0) Red Cell Distribution Width 11.1 % (11.6-14.8) L 11.3 % (11.6-14.8) L Platelet Count 161 K/UL (150-450) 143 K/UL (150-450) L Mean Platelet Volume 5.8 FL (6.5-10.1) L 6.3 FL (6.5-10.1) L Neutrophils (%) (Auto) % (45.0-75.0) % (45.0-75.0) Lymphocytes (%) (Auto) % (20.0-45.0) % (20.0-45.0) Monocytes (%) (Auto) % (1.0-10.0) % (1.0-10.0) Eosinophils (%) (Auto) % (0.0-3.0) % (0.0-3.0) Basophils (%) (Auto) % (0.0-2.0) % (0.0-2.0) Differential Total Cells Counted 100 100 Neutrophils % (Manual) 78 % (45-75) H 62 % (45-75) Lymphocytes % (Manual) 4 % (20-45) L 3 % (20-45) L Monocytes % (Manual) 3 % (1-10) 2 % (1-10) Eosinophils % (Manual) 0 % (0-3) 0 % (0-3) Basophils % (Manual) 0 % (0-2) 0 % (0-2) Band Neutrophils 15 % (0-8) H 33 % (0-8) H Platelet Estimate Adequate Decreased L Platelet Morphology Normal Normal Red Blood Cell Morphology Normal Normal Sodium Level 143 MMOL/L (136-145) 143 MMOL/L (136-145) Potassium Level 3.3 MMOL/L (3.5-5.1) L 3.9 MMOL/L (3.5-5.1) Chloride Level 107 MMOL/L (98-107) 111 MMOL/L (98-107) H Carbon Dioxide Level 23 MMOL/L (21-32) 22 MMOL/L (21-32) Anion Gap 13 mmol/L (5-15) 10 mmol/L (5-15) Blood Urea Nitrogen 34 mg/dL (7-18) H 31 mg/dL (7-18) H Creatinine 2.1 MG/DL (0.55-1.30) H 1.6 MG/DL (0.55-1.30) H Estimat Glomerular Filtration Rate mL/min (>60) mL/min (>60) Glucose Level 137 MG/DL (74-106) H 136 MG/DL (74-106) H Lactic Acid Level 3.60 mmol/L (0.4-2.0) H 3.00 mmol/L (0.66-2.22) H 2.50 mmol/L (0.4-2.0) H 1.70 mmol/L (0.4-2.0) Calcium Level 9.5 MG/DL (8.5-10.1) 8.3 MG/DL (8.5-10.1) L Total Bilirubin 0.6 MG/DL (0.2-1.0) Aspartate Amino Transf (AST/SGOT) 41 U/L (15-37) H Alanine Aminotransferase (ALT/SGPT) 50 U/L (12-78) Alkaline Phosphatase 61 U/L (46-116) Total Creatine Kinase 214 U/L (26-308) Creatine Kinase MB 1.6 NG/ML (0.0-3.6) Creatine Kinase MB Relative Index 0.7 Troponin I 0.027 ng/mL (0.000-0.056) Total Protein 7.3 G/DL (6.4-8.2) Albumin 3.3 G/DL (3.4-5.0) L Globulin 4.0 g/dL Albumin/Globulin Ratio 0.8 (1.0-2.7) L Microbiology Date/Time Source Procedure Growth Status 07/11/18 23:00 Rectum Received Height (Feet): 5 Height (Inches): 6.00 Weight (Pounds): 143 Medications Current Medications Medications (Trade) Dose Ordered Sig/Nahum Route PRN Reason Start Time Stop Time Status Last Admin Dose Admin Acetaminophen (Tylenol) 650 mg Q4H PRN ORAL Mild Pain (Pain Scale 1-3) 07/11/18 21:30 08/10/18 21:29 Dextrose (Dextrose 50%) 25 ml Q30M PRN IV Hypoglycemia 07/11/18 21:30 08/10/18 21:29 Dextrose (Dextrose 50%) 50 ml Q30M PRN IV Hypoglycemia 07/11/18 21:30 08/10/18 21:29 Enoxaparin Sodium (Lovenox) 30 mg Q24H SUBQ 07/11/18 22:00 08/10/18 21:59 07/11/18 23:24 Famotidine (Pepcid) 40 mg DAILY ORAL 07/12/18 09:00 08/11/18 08:59 07/12/18 08:24 Meropenem 500 mg/ Sodium Chloride 55 ml @ 110 mls/hr Q12H IV 07/12/18 00:00 07/17/18 00:00 07/12/18 12:29 Norepinephrine Bitartrate 4 mg/ Dextrose 250 ml @ 0 mls/hr Q24H IV 07/11/18 21:30 08/10/18 21:29 07/11/18 23:50 Ondansetron HCl (Zofran) 4 mg Q6H PRN IVP Nausea & Vomiting 07/11/18 21:30 08/10/18 21:29 Sodium Chloride 1,000 ml @ 125 mls/hr Q8H IVLG 07/11/18 22:19 08/10/18 22:18 07/12/18 12:32 Vancomycin HCl (Vanco rx to dose) 1 ea DAILY PRN MISC Per rx protocol 07/11/18 22:00 08/10/18 21:59 Vancomycin HCl 1 gm/Dextrose 275 ml @ 183.708 mls/hr Q24H IVPB 07/13/18 02:00 07/18/18 01:59 Assessment/Plan Problem List: (1) Proctitis ICD Codes: K62.89 - Other specified diseases of anus and rectum SNOMED: 6224596 (2) Septic shock Assessment & Plan: 82M septic shock likely from acute pyelonephritis. fecal impaction with stercoral proctitis. leukocytosis. UTI. Status post cholecystectomy. No clear biliary dilation. Pancreatic atrophy without acute inflammation. Left perinephric stranding is more pronounced than on the right side. Correlate for any signs or symptoms of pyelonephritis. No urolithiasis or hydronephrosis. Small mid zone right renal cyst. Fecal retention with perirectal edema. Suspect impaction with stercoral proctitis. No free air or abscess. Unremarkable appendix. Prostatomegaly without pathologic bladder distention. Small fatty umbilical hernia. No acute fracture. Fecal impaction with stercoral proctitis. Left perinephric stranding is more pronounced than right. Correlate for signs or symptoms of pyelonephritis. Other incidental findings as detailed above. No acute surgical intervention necessary Daily Enemas for now Bowel regimen will follow with recs thank you ICD Codes: A41.9 - Sepsis, unspecified organism; R65.21 - Severe sepsis with septic shock SNOMED: 50156287 Dick Bashir Jul 12, 2018 12:58
[2018-07-12] MEDS ORDERED: Sennosides 8.6mg ORAL SCH (13:00)
[2018-07-12] MEDS: Fleet's Enema 133ml RECTAL SCH (13:01)
[2018-07-12] MEDS ORDERED: LORazepam Inj 2mg/ml 1ml ONE (16:38)
--- NOTE | 2018-07-12 17:00 | Consultation ---
DATE OF CONSULTATION: 07/12/2018 INFECTIOUS DISEASE CONSULTATION CONSULTING PHYSICIAN: Deepti Biggs M.D. REQUESTING PHYSICIAN: Jose Arteaga M.D. REASON FOR CONSULTATION: Septic shock with pyelonephritis, recommendation for antibiotics treatment. HISTORY OF PRESENT ILLNESS: The patient is an 82-year-old male with past medical history of benign prostatic hypertrophy, status post resection and recurrent UTI, was brought in by his family for alteration in his mental status, which has been progressive. The patient in the emergency room was noticed to be altered with significant leukocytosis of 22.7 and hypotension concerning for sepsis. So, he was started on IV antibiotics treatment and Infectious Disease consultation was requested for antibiotics treatment and further management. As per the daughter, the patient had difficulty urination over the last couple of days. He also had difficulty inserting Shannon catheter in the emergency room, which might be due to recurrent enlarged prostate or ureteral stricture, which has caused his urine infection and possibly pyelonephritis. The patient himself is more alert, but poor historian, could not provide any history. History was mainly obtained from the medical record and his daughter at the bedside. REVIEW OF SYSTEMS: A 14-point of systems reviewed were all negative apart from the one I mentioned above in my History and Physical. PAST MEDICAL HISTORY: Significant for recurrent UTI and benign prostatic hypertrophy. PAST SURGICAL HISTORY: He had prostate resection eight years ago. FAMILY HISTORY: Significant for diabetes and hypertension. SOCIAL HISTORY: The patient lives at home with daughter and unemployed. Denied using any drugs, tobacco, or alcohol. ALLERGIES: No known drug allergy. MEDICATIONS: The patient was given Unasyn in the emergency room. For the rest of his medications, please refer to MAR. LABORATORY DATA: Laboratory showed white count of 22.7, hemoglobin of 14.5, and platelet count of 161. BUN of 31 and creatinine of 1.6. Lactic acid of 1.7. IMAGING DATA: 1. Head CT scan showed no acute intracranial process. 2. Chest x-ray showed subsegmental left basilar atelectasis. 3. Abdominal pelvic CT scan showed fecal impaction with stercoral proctitis, left perinephric stranding more pronounced than right, possible pyelonephritis. PHYSICAL EXAMINATION: VITAL SIGNS: Temperature 98.2, pulse 88, respirations 18, blood pressure 106/55, and saturation 100% on room air. GENERAL: An elderly male, lying in bed, awake, alert, nonverbal, not in acute distress. HEENT: Normocephalic and atraumatic. Pupils reactive to light. Moist oral mucosa. NECK: Supple. No lymphadenopathy. CARDIOVASCULAR: Regular rate and rhythm. No murmur or gallop. LUNGS: He had diminished breathing sound at the bases. No wheezing or rhonchi. ABDOMEN: Soft, nontender, nondistended. Normal bowel sounds. No hepatosplenomegaly or ascites. EXTREMITIES: No edema or cyanosis. ASSESSMENT AND RECOMMENDATION: 1. Acute pyelonephritis with left perinephric stranding complicated with sepsis. We will start meropenem empirically, pending cultures. We will send urine culture and order renal ultrasound to rule out stones or mass. 2. Septic shock due to the above. We will start vancomycin and meropenem, pending blood culture. 3. Acute renal failure due to sepsis. Continue hydration. Monitor renal function. 4. Dehydration. Continue IV fluid for hydration. Monitor electrolytes. 5. Acute encephalopathy due to the above. Continue hydration and antibiotics. Continue neuro check. Thank you for the consult. ID will continue to follow. Deepti Biggs M.D. DR: CHARLES JOB#: [id number] CC:
[2018-07-12] MEDS ORDERED: LORazepam Inj 2mg/ml 1ml IV SCH (17:02)
[2018-07-12] MEDS ORDERED: Dyna-Hex 2% Top Sol 2oz TOPIC SCH (20:00)
--- NOTE | 2018-07-12 20:30 | Consultation ---
DATE OF CONSULTATION: 07/12/2018 UROLOGY CONSULTATION CONSULTING PHYSICIAN: Spencer Cade M.D. ATTENDING/CONSULTING PHYSICIAN: Jose Arteaga M.D. CHIEF COMPLAINT AND HISTORY OF PRESENT ILLNESS: I was asked by Dr. Arteaga to evaluate this unfortunate 82-year-old gentleman regarding a history of difficulty Shannon catheter placement. Briefly, the patient presented to the hospital with altered mental status. He was noted to have an elevated white blood cell count of 22 and a creatinine of 2. Workup for the same revealed evidence of possible sepsis. Staff could not pass a Shannon catheter and as such, I was asked to evaluate the patient and do the same. PAST MEDICAL HISTORY: 1. Recurrent UTIs. 2. BPH. 3. Dementia/Alzheimer's disease. PAST SURGICAL HISTORY: Prostate surgery, NOS. MEDICATIONS: Please see chart for current medications and administration details. ALLERGIES: No known drug allergies. SOCIAL HISTORY: Unremarkable for tobacco, alcohol, or drug use. FAMILY HISTORY: Unavailable. REVIEW OF SYSTEMS: A 14 system review of systems cannot be done as the patient cannot cooperate with questioning. PHYSICAL EXAMINATION: GENERAL: The patient is an elderly gentleman, awake and alert. Not oriented. No obvious distress. HEENT: NC/AT. EOMI. NECK: Supple. Full range of motion. Oropharynx is clear. CHEST: Within normal limits. ABDOMEN: Soft, flat, nontender, and nondistended. EXTREMITIES: Warm and well perfused. No cyanosis, clubbing, or edema. BACK: No CVA tenderness to percussion. NEUROLOGIC: Notable for dementia and confusion. GENITOURINARY: Reveals an uncircumcised male phallus. No discharge, lesions, or curvature. There are bilateral descended testes and cord structures with no masses or tenderness to palpation. LABORATORY DATA: White blood cell count 24.6, hematocrit 37.9, and platelets 143,000. Sodium 143, potassium 3.9, chloride 111, bicarbonate 22, BUN 31, creatinine 1.6, glucose 136, and calcium 8.6. DIAGNOSTIC IMAGING: CT scan of the abdomen and pelvis reveals patient is status post cholecystectomy. There is fecal impaction with stercoral proctitis. There is left perinephric stranding, more pronounced than right. There is prostatomegaly without evidence of bladder distention. ASSESSMENT AND PLAN: In summary, the patient is an 82-year-old gentleman with history of dementia and altered mental status, presenting with evidence of sepsis/infection. Staff could not pass a Shannon catheter. Physical exam reveals a confused demented gentleman. Laboratory data is notable for elevated white blood cell count and an elevated creatinine, which is decreasing. Diagnostic imaging with CT scan does not reveal evidence of urinary retention, but does reveal evidence of prostate enlargement. Today at the bedside, I tried multiple times to pass a Shannon catheter in the patient's bladder. This met resistance in the bulbar urethra, consistent with urethral stricture. Multiple attempts at passing a guidewire and total form and other instruments into the bladder were met with resistance and I was unable to do so. The patient is wearing a condom catheter and a bladder scan done at bedside reveals no significant evidence of retention with a postvoid residual of 66 mL. Given the above, it appears that the patient can urinate on his own. There is no evidence of retention at this time, requiring a Shannon catheter. Further measures would include putting an tube in or taking the patient cystoscopy and DVIU, but given his mental state, current health, and current infection. I would advise against this. I will continue the patient on external catheter and allow him to void spontaneously as he has been doing. Thank you for allowing me to participate in the care of this unfortunate gentleman. Please do not hesitate to contact me for any questions that you may further have regarding his care. I will see him with you as needed. Spencer Cade M.D. DR: ADILENE JOB#: [id number] CC:
[2018-07-12] MEDS ORDERED: Heparin 5000 units/ml inj SUBQ SCH (21:00)
[2018-07-12] MEDS: Enoxaparin 30mg Inj SUBQ SCH (21:35)
[2018-07-13] VITALS (25 sets, daily range): BP systolic 92–136; BP diastolic 52–99
[2018-07-13] MEDS ORDERED: Vancomycin 1gm in D5W 275ml IVPB SCH (02:00)
[2018-07-13 04:20] LABS: HEMATOCRIT 35.8 % (42.0-52.0); HEMOGLOBIN 12.2 G/DL (14.2-18.0); MEAN CORPUSCULAR VOLUME 91 FL (80-99); PLATELET COUNT 98 K/UL (150-450); RED BLOOD COUNT 3.93 M/UL (4.70-6.10); RED CELL DISTRIBUTION WIDTH 11.3 % (11.6-14.8); WHITE BLOOD COUNT 15.4 K/UL (4.8-10.8)
[2018-07-13 04:24] LABS: ANION GAP 6 mmol/L (5-15); BLOOD UREA NITROGEN 19 mg/dL (7-18); CALCIUM 8.3 MG/DL (8.5-10.1); CARBON DIOXIDE 26 MMOL/L (21-32); CHLORIDE 111 MMOL/L (98-107); POTASSIUM 3.5 MMOL/L (3.5-5.1); SODIUM 142 MMOL/L (136-145)
--- NOTE | 2018-07-13 08:06 | Nephrology Progress Note ---
Assessment/Plan Assessment/Plan A/P 1) Septic Shock- likley urosepsis/pyleo - WBC improving on Abx - off Levophed, Tx to Tele 2) TRUDI- Cr 2.6---->1.6----> resolved 1 - ATN from hypotension - IVFs 3) Proctitis- per Gen Surgery 4) BPH- condom catheter, appreciate Urology 5) Hypotension- resolved, off IVFs 6) DVT prophylaxsis- lovenox Subjective Date patient seen: Jul 13, 2018 Time patient seen: 08:02 ROS Limited/Unobtainable: Yes Allergies: Coded Allergies: No Known Allergies (Unverified , 07/11/18) Subjective Patient arousable. Has underlying dementia per family Objective Last 24 Hour Vital Signs Date Time Temp Pulse Resp B/P (MAP) Pulse Ox O2 Delivery O2 Flow Rate FiO2 07/13/18 07:00 77 18 124/69 (87) 98 07/13/18 06:30 88 17 135/87 (103) 98 07/13/18 06:00 88 17 119/66 (83) 98 07/13/18 05:30 85 17 109/78 (88) 97 07/13/18 05:00 84 16 136/99 (111) 97 07/13/18 05:00 136/99 07/13/18 04:30 84 17 130/97 (108) 97 07/13/18 04:00 Room Air 07/13/18 04:00 111/76 07/13/18 04:00 98.3 72 17 111/76 (88) 97 98.3 07/13/18 04:00 76 07/13/18 03:30 71 15 115/63 (80) 97 07/13/18 03:00 75 15 107/54 (71) 97 07/13/18 03:00 107/54 07/13/18 02:30 75 15 92/52 (65) 97 07/13/18 02:00 101/60 07/13/18 02:00 77 16 101/60 (74) 97 07/13/18 01:30 82 16 107/64 (78) 97 07/13/18 01:00 123/79 07/13/18 01:00 85 17 123/79 (94) 96 07/13/18 00:30 88 16 112/66 (81) 98 18 00:00 82 07/13/18 00:00 Room Air 07/13/18 00:00 132/69 07/13/18 00:00 98.0 93 16 132/69 (90) 98 98.0 18 23:30 82 18 127/64 (85) 97 07/12/18 23:00 89 16 128/77 (94) 97 07/12/18 23:00 128/77 07/12/18 22:30 87 17 112/62 (79) 96 18 22:00 111/66 07/12/18 22:00 88 16 111/66 (81) 96 18 21:30 87 16 116/69 (85) 97 07/12/18 21:00 149/70 07/12/18 21:00 83 16 149/70 (96) 97 07/12/18 20:30 76 17 142/69 (93) 96 07/12/18 20:00 Room Air 07/12/18 20:00 116/61 07/12/18 20:00 98.0 80 18 116/61 (79) 95 98.0 07/12/18 19:59 81 07/12/18 19:30 86 17 124/68 (86) 96 07/12/18 19:00 84 21 136/79 (98) 94 07/12/18 18:00 97.6 87 18 79/64 (69) 100 97.6 07/12/18 17:00 88 21 113/74 (87) 94 07/12/18 16:00 Room Air 07/12/18 16:00 85 07/12/18 16:00 96 20 106/51 (69) 100 07/12/18 15:00 84 18 95/76 (82) 100 07/12/18 14:00 83 11 90/60 (70) 100 07/12/18 13:00 78 11 114/56 (75) 98 07/12/18 12:00 86 07/12/18 12:00 Room Air 07/12/18 12:00 98.2 88 18 106/55 (72) 100 98.2 07/12/18 11:00 92 19 95/49 (64) 98 07/12/18 10:00 85 19 103/50 (67) 96 07/12/18 09:00 95 19 88/50 (63) 97 Intake and Output 07/12/18 07/13/18 19:00 07:00 Intake Total 1582.5 ml 3035.00 ml Output Total 440 ml 535 ml Balance 1142.5 ml 2500.00 ml IV Total 1582.5 ml 3035.00 ml Output Urine Total 440 ml 535 ml # Voids 1 # Bowel Movements 1 Laboratory Tests 07/12/18 10:00: Lactic Acid Level 1.70 07/13/18 03:15: White Blood Count 15.4H, Red Blood Count 3.93L, Hemoglobin 12.2L, Hematocrit 35.8L, Mean Corpuscular Volume 91, Mean Corpuscular Hemoglobin 31.1H, Mean Corpuscular Hemoglobin Concent 34.1, Red Cell Distribution Width 11.3L, Platelet Count 98L, Mean Platelet Volume 6.5, Neutrophils (%) (Auto) , Lymphocytes (%) (Auto) , Monocytes (%) (Auto) , Eosinophils (%) (Auto) , Basophils (%) (Auto) , Neutrophils % (Manual) [Pending], Lymphocytes % (Manual) [Pending], Platelet Estimate [Pending], Platelet Morphology [Pending], Sodium Level 142, Potassium Level 3.5, Chloride Level 111H, Carbon Dioxide Level 26, Anion Gap 6, Blood Urea Nitrogen 19H, Creatinine 1.0, Estimat Glomerular Filtration Rate , Glucose Level 108H, Calcium Level 8.3L Height (Feet): 5 Height (Inches): 6.00 Weight (Pounds): 147 General Appearance: no apparent distress, lethargic EENT: normal ENT inspection Neck: normal alignment, supple Cardiovascular: normal rate, regular rhythm Respiratory/Chest: lungs clear, normal breath sounds Abdomen: non tender, soft Edema: no edema noted Arm (L), no edema noted Arm (R), no edema noted Leg (L), no edema noted Leg (R), no edema noted Pedal (L), no edema noted Pedal (R), no edema noted Generalized Jose Arteaga MD Jul 13, 2018 08:06
[2018-07-13] MEDS ORDERED: Docusate 250mg cap ORAL SCH (09:00)
[2018-07-13] MEDS: Meropenem 1gm/NS 110ml IVPB SCH ×4 (09:00→13:45)
[2018-07-13] MEDS: Fleet's Enema 133ml RECTAL SCH (09:00)
--- NOTE | 2018-07-13 11:25 | Critical Care Progress Note ---
Assessment/Plan Assessment/Plan severe sepsis hypotension shock leukocytosis TRUDI acute encephalopathy PLAN off pressors IV hydration with improvement IV antibiotics ICU care noted will monitor and assist medications/laboratory data/nursing notes/ICU care reviewed in detail note reviewed and edited care discussed with RN and RT ok to tele Critical Care - Subjective ROS Limited/Unobtainable: Yes Condition: critical EKG Rhythm: Sinus Rhythm I&O: Intake and Output 07/12/18 07/13/18 19:00 07:00 Intake Total 1582.5 ml 3035.00 ml Output Total 440 ml 535 ml Balance 1142.5 ml 2500.00 ml IV Total 1582.5 ml 3035.00 ml Output Urine Total 440 ml 535 ml # Voids 1 # Bowel Movements 1 Critical Care - Objective Last 24 Hour Vital Signs Date Time Temp Pulse Resp B/P (MAP) Pulse Ox O2 Delivery O2 Flow Rate FiO2 07/13/18 10:00 79 15 102/60 (74) 98 07/13/18 09:00 82 16 128/66 (86) 96 07/13/18 08:00 Room Air 07/13/18 08:00 98.1 80 16 100/53 (69) 97 98.1 07/13/18 07:00 77 18 124/69 (87) 98 07/13/18 06:30 88 17 135/87 (103) 98 07/13/18 06:00 88 17 119/66 (83) 98 07/13/18 05:30 85 17 109/78 (88) 97 07/13/18 05:00 84 16 136/99 (111) 97 07/13/18 05:00 136/99 07/13/18 04:30 84 17 130/97 (108) 97 07/13/18 04:00 Room Air 07/13/18 04:00 111/76 07/13/18 04:00 98.3 72 17 111/76 (88) 97 98.3 07/13/18 04:00 76 07/13/18 03:30 71 15 115/63 (80) 97 07/13/18 03:00 75 15 107/54 (71) 97 07/13/18 03:00 107/54 07/13/18 02:30 75 15 92/52 (65) 97 07/13/18 02:00 101/60 07/13/18 02:00 77 16 101/60 (74) 97 07/13/18 01:30 82 16 107/64 (78) 97 07/13/18 01:00 123/79 07/13/18 01:00 85 17 123/79 (94) 96 07/13/18 00:30 88 16 112/66 (81) 98 07/13/18 00:00 82 07/13/18 00:00 Room Air 07/13/18 00:00 132/69 07/13/18 00:00 98.0 93 16 132/69 (90) 98 98.0 07/12/18 23:30 82 18 127/64 (85) 97 07/12/18 23:00 89 16 128/77 (94) 97 07/12/18 23:00 128/77 07/12/18 22:30 87 17 112/62 (79) 96 07/12/18 22:00 111/66 07/12/18 22:00 88 16 111/66 (81) 96 07/12/18 21:30 87 16 116/69 (85) 97 07/12/18 21:00 149/70 07/12/18 21:00 83 16 149/70 (96) 97 07/12/18 20:30 76 17 142/69 (93) 96 07/12/18 20:00 Room Air 07/12/18 20:00 116/61 07/12/18 20:00 98.0 80 18 116/61 (79) 95 98.0 07/12/18 19:59 81 07/12/18 19:30 86 17 124/68 (86) 96 07/12/18 19:00 84 21 136/79 (98) 94 07/12/18 18:00 97.6 87 18 79/64 (69) 100 97.6 07/12/18 17:00 88 21 113/74 (87) 94 07/12/18 16:00 Room Air 07/12/18 16:00 85 07/12/18 16:00 96 20 106/51 (69) 100 07/12/18 15:00 84 18 95/76 (82) 100 07/12/18 14:00 83 11 90/60 (70) 100 07/12/18 13:00 78 11 114/56 (75) 98 07/12/18 12:00 86 07/12/18 12:00 Room Air 07/12/18 12:00 98.2 88 18 106/55 (72) 100 98.2 Labs: Labs Test 07/11/18 17:35 07/11/18 22:00 07/12/18 03:50 07/12/18 10:00 White Blood Count 22.7 K/UL (4.8-10.8) 24.6 K/UL (4.8-10.8) Red Blood Count 4.50 M/UL (4.70-6.10) 4.14 M/UL (4.70-6.10) Hemoglobin 14.5 G/DL (14.2-18.0) 12.8 G/DL (14.2-18.0) Hematocrit 41.9 % (42.0-52.0) 37.9 % (42.0-52.0) Mean Corpuscular Volume 93 FL (80-99) 92 FL (80-99) Mean Corpuscular Hemoglobin 32.2 PG (27.0-31.0) 31.0 PG (27.0-31.0) Mean Corpuscular Hemoglobin Concent 34.5 G/DL (32.0-36.0) 33.8 G/DL (32.0-36.0) Red Cell Distribution Width 11.1 % (11.6-14.8) 11.3 % (11.6-14.8) Platelet Count 161 K/UL (150-450) 143 K/UL (150-450) Mean Platelet Volume 5.8 FL (6.5-10.1) 6.3 FL (6.5-10.1) Neutrophils (%) (Auto) % (45.0-75.0) % (45.0-75.0) Lymphocytes (%) (Auto) % (20.0-45.0) % (20.0-45.0) Monocytes (%) (Auto) % (1.0-10.0) % (1.0-10.0) Eosinophils (%) (Auto) % (0.0-3.0) % (0.0-3.0) Basophils (%) (Auto) % (0.0-2.0) % (0.0-2.0) Differential Total Cells Counted 100 100 Neutrophils % (Manual) 78 % (45-75) 62 % (45-75) Lymphocytes % (Manual) 4 % (20-45) 3 % (20-45) Monocytes % (Manual) 3 % (1-10) 2 % (1-10) Eosinophils % (Manual) 0 % (0-3) 0 % (0-3) Basophils % (Manual) 0 % (0-2) 0 % (0-2) Band Neutrophils 15 % (0-8) 33 % (0-8) Platelet Estimate Adequate Decreased Platelet Morphology Normal Normal Red Blood Cell Morphology Normal Normal Sodium Level 143 MMOL/L (136-145) 143 MMOL/L (136-145) Potassium Level 3.3 MMOL/L (3.5-5.1) 3.9 MMOL/L (3.5-5.1) Chloride Level 107 MMOL/L (98-107) 111 MMOL/L (98-107) Carbon Dioxide Level 23 MMOL/L (21-32) 22 MMOL/L (21-32) Anion Gap 13 mmol/L (5-15) 10 mmol/L (5-15) Blood Urea Nitrogen 34 mg/dL (7-18) 31 mg/dL (7-18) Creatinine 2.1 MG/DL (0.55-1.30) 1.6 MG/DL (0.55-1.30) Estimat Glomerular Filtration Rate mL/min (>60) mL/min (>60) Glucose Level 137 MG/DL (74-106) 136 MG/DL (74-106) Lactic Acid Level 3.60 mmol/L (0.4-2.0) 3.00 mmol/L (0.66-2.22) 2.50 mmol/L (0.4-2.0) 1.70 mmol/L (0.4-2.0) Calcium Level 9.5 MG/DL (8.5-10.1) 8.3 MG/DL (8.5-10.1) Total Bilirubin 0.6 MG/DL (0.2-1.0) Aspartate Amino Transf (AST/SGOT) 41 U/L (15-37) Alanine Aminotransferase (ALT/SGPT) 50 U/L (12-78) Alkaline Phosphatase 61 U/L (46-116) Total Creatine Kinase 214 U/L (26-308) Creatine Kinase MB 1.6 NG/ML (0.0-3.6) Creatine Kinase MB Relative Index 0.7 Troponin I 0.027 ng/mL (0.000-0.056) Total Protein 7.3 G/DL (6.4-8.2) Albumin 3.3 G/DL (3.4-5.0) Globulin 4.0 g/dL Albumin/Globulin Ratio 0.8 (1.0-2.7) Test 07/13/18 03:15 White Blood Count 15.4 K/UL (4.8-10.8) Red Blood Count 3.93 M/UL (4.70-6.10) Hemoglobin 12.2 G/DL (14.2-18.0) Hematocrit 35.8 % (42.0-52.0) Mean Corpuscular Volume 91 FL (80-99) Mean Corpuscular Hemoglobin 31.1 PG (27.0-31.0) Mean Corpuscular Hemoglobin Concent 34.1 G/DL (32.0-36.0) Red Cell Distribution Width 11.3 % (11.6-14.8) Platelet Count 98 K/UL (150-450) Mean Platelet Volume 6.5 FL (6.5-10.1) Neutrophils (%) (Auto) % (45.0-75.0) Lymphocytes (%) (Auto) % (20.0-45.0) Monocytes (%) (Auto) % (1.0-10.0) Eosinophils (%) (Auto) % (0.0-3.0) Basophils (%) (Auto) % (0.0-2.0) Differential Total Cells Counted 100 Neutrophils % (Manual) 75 % (45-75) Lymphocytes % (Manual) 7 % (20-45) Monocytes % (Manual) 5 % (1-10) Eosinophils % (Manual) 0 % (0-3) Basophils % (Manual) 0 % (0-2) Band Neutrophils 13 % (0-8) Platelet Estimate Decreased Platelet Morphology Normal Red Blood Cell Morphology Normal Sodium Level 142 MMOL/L (136-145) Potassium Level 3.5 MMOL/L (3.5-5.1) Chloride Level 111 MMOL/L (98-107) Carbon Dioxide Level 26 MMOL/L (21-32) Anion Gap 6 mmol/L (5-15) Blood Urea Nitrogen 19 mg/dL (7-18) Creatinine 1.0 MG/DL (0.55-1.30) Estimat Glomerular Filtration Rate mL/min (>60) Glucose Level 108 MG/DL (74-106) Calcium Level 8.3 MG/DL (8.5-10.1) Objective: WDWN acutely ill clear breath sounds bilaterally without rhonchi or wheeze [id number] without MRG NABS nontender no HSM no CCE reduced LOC Micro: Microbiology Date/Time Source Procedure Growth Status 07/11/18 17:36 Blood Blood Culture - Preliminary NO GROWTH AFTER 24 HOURS Resulted 07/11/18 17:30 Blood Blood Culture - Preliminary NO GROWTH AFTER 24 HOURS Resulted 07/12/18 06:10 Indwelling Cath Urine Culture - Preliminary NO GROWTH Resulted 07/11/18 23:00 Rectum Received Accucheck: 131 César Humphreys MD Jul 13, 2018 11:25
--- NOTE | 2018-07-13 11:38 | General Surgery Progress Note ---
General Surgery-Progress Note Subjective Symptoms: improved Additional Comments no acute events. leukocytosis improving Objective Last 24 Hour Vital Signs Date Time Temp Pulse Resp B/P (MAP) Pulse Ox O2 Delivery O2 Flow Rate FiO2 07/13/18 11:00 69 16 94/57 (69) 98 07/13/18 10:00 79 15 102/60 (74) 98 07/13/18 09:00 82 16 128/66 (86) 96 07/13/18 08:00 Room Air 07/13/18 08:00 98.1 80 16 100/53 (69) 97 98.1 07/13/18 08:00 80 07/13/18 07:00 77 18 124/69 (87) 98 07/13/18 06:30 88 17 135/87 (103) 98 07/13/18 06:00 88 17 119/66 (83) 98 07/13/18 05:30 85 17 109/78 (88) 97 07/13/18 05:00 84 16 136/99 (111) 97 07/13/18 05:00 136/99 07/13/18 04:30 84 17 130/97 (108) 97 07/13/18 04:00 Room Air 07/13/18 04:00 111/76 07/13/18 04:00 98.3 72 17 111/76 (88) 97 98.3 07/13/18 04:00 76 07/13/18 03:30 71 15 115/63 (80) 97 07/13/18 03:00 75 15 107/54 (71) 97 07/13/18 03:00 107/54 07/13/18 02:30 75 15 92/52 (65) 97 07/13/18 02:00 101/60 07/13/18 02:00 77 16 101/60 (74) 97 07/13/18 01:30 82 16 107/64 (78) 97 07/13/18 01:00 123/79 07/13/18 01:00 85 17 123/79 (94) 96 07/13/18 00:30 88 16 112/66 (81) 98 07/13/18 00:00 82 07/13/18 00:00 Room Air 07/13/18 00:00 132/69 07/13/18 00:00 98.0 93 16 132/69 (90) 98 98.0 07/12/18 23:30 82 18 127/64 (85) 97 07/12/18 23:00 89 16 128/77 (94) 97 07/12/18 23:00 128/77 07/12/18 22:30 87 17 112/62 (79) 96 07/12/18 22:00 111/66 18 22:00 88 16 111/66 (81) 96 07/12/18 21:30 87 16 116/69 (85) 97 07/12/18 21:00 149/70 07/12/18 21:00 83 16 149/70 (96) 97 07/12/18 20:30 76 17 142/69 (93) 96 07/12/18 20:00 Room Air 07/12/18 20:00 116/61 07/12/18 20:00 98.0 80 18 116/61 (79) 95 98.0 07/12/18 19:59 81 07/12/18 19:30 86 17 124/68 (86) 96 07/12/18 19:00 84 21 136/79 (98) 94 07/12/18 18:00 97.6 87 18 79/64 (69) 100 97.6 07/12/18 17:00 88 21 113/74 (87) 94 07/12/18 16:00 Room Air 07/12/18 16:00 85 07/12/18 16:00 96 20 106/51 (69) 100 07/12/18 15:00 84 18 95/76 (82) 100 07/12/18 14:00 83 11 90/60 (70) 100 07/12/18 13:00 78 11 114/56 (75) 98 07/12/18 12:00 86 07/12/18 12:00 Room Air 07/12/18 12:00 98.2 88 18 106/55 (72) 100 98.2 I&O Intake and Output 07/12/18 07/13/18 19:00 07:00 Intake Total 1582.5 ml 3035.00 ml Output Total 440 ml 535 ml Balance 1142.5 ml 2500.00 ml IV Total 1582.5 ml 3035.00 ml Output Urine Total 440 ml 535 ml # Voids 1 # Bowel Movements 1 Dressing: saturated Wound: other Drains: other Cardiovascular: RSR Respiratory: decreased breath sounds Abdomen: soft, flat, non-tender, present bowel sounds Extremities: no cyanosis Laboratory Tests Test 07/13/18 03:15 White Blood Count 15.4 K/UL (4.8-10.8) H Red Blood Count 3.93 M/UL (4.70-6.10) L Hemoglobin 12.2 G/DL (14.2-18.0) L Hematocrit 35.8 % (42.0-52.0) L Mean Corpuscular Volume 91 FL (80-99) Mean Corpuscular Hemoglobin 31.1 PG (27.0-31.0) H Mean Corpuscular Hemoglobin Concent 34.1 G/DL (32.0-36.0) Red Cell Distribution Width 11.3 % (11.6-14.8) L Platelet Count 98 K/UL (150-450) L Mean Platelet Volume 6.5 FL (6.5-10.1) Neutrophils (%) (Auto) % (45.0-75.0) Lymphocytes (%) (Auto) % (20.0-45.0) Monocytes (%) (Auto) % (1.0-10.0) Eosinophils (%) (Auto) % (0.0-3.0) Basophils (%) (Auto) % (0.0-2.0) Differential Total Cells Counted 100 Neutrophils % (Manual) 75 % (45-75) Lymphocytes % (Manual) 7 % (20-45) L Monocytes % (Manual) 5 % (1-10) Eosinophils % (Manual) 0 % (0-3) Basophils % (Manual) 0 % (0-2) Band Neutrophils 13 % (0-8) H Platelet Estimate Decreased L Platelet Morphology Normal Red Blood Cell Morphology Normal Sodium Level 142 MMOL/L (136-145) Potassium Level 3.5 MMOL/L (3.5-5.1) Chloride Level 111 MMOL/L (98-107) H Carbon Dioxide Level 26 MMOL/L (21-32) Anion Gap 6 mmol/L (5-15) Blood Urea Nitrogen 19 mg/dL (7-18) H Creatinine 1.0 MG/DL (0.55-1.30) Estimat Glomerular Filtration Rate mL/min (>60) Glucose Level 108 MG/DL (74-106) H Calcium Level 8.3 MG/DL (8.5-10.1) L Plan Problems: (1) Proctitis (2) Septic shock Assessment & Plan: 82M septic shock likely from acute pyelonephritis. fecal impaction with stercoral proctitis. leukocytosis. UTI. Status post cholecystectomy. No clear biliary dilation. Pancreatic atrophy without acute inflammation. Left perinephric stranding is more pronounced than on the right side. Correlate for any signs or symptoms of pyelonephritis. No urolithiasis or hydronephrosis. Small mid zone right renal cyst. Fecal retention with perirectal edema. Suspect impaction with stercoral proctitis. No free air or abscess. Unremarkable appendix. Prostatomegaly without pathologic bladder distention. Small fatty umbilical hernia. No acute fracture. Fecal impaction with stercoral proctitis. Left perinephric stranding is more pronounced than right. Correlate for signs or symptoms of pyelonephritis. Other incidental findings as detailed above. No acute surgical intervention necessary Daily Enemas for now Bowel regimen will follow with recs thank you Dick Bashir Jul 13, 2018 11:38
[2018-07-13] MEDS ORDERED: Dyna-Hex 2% Top Sol 2oz TOPIC SCH (20:00)
--- NOTE | 2018-07-13 21:27 | Infectious Diseases Prog Note ---
Assessment/Plan Problems: (1) Acute pyelonephritis Assessment & Plan: with left perinephrial stranding , complicated with sepsis, continue meropenem empirically pending cultures, (2) Septic shock Assessment & Plan: due to the above , continue vacomycin and meropenem pending blood culture (3) Acute renal failure (ARF) Assessment & Plan: due to sepsis , continue hydration, monitor renal function (4) Dehydration Assessment & Plan: continue IVF for hydration , monitor lytes (5) Acute encephalopathy Assessment & Plan: due to the above, continue hydration ad antibiotics , continue neuro check Subjective ROS Limited/Unobtainable: Yes Allergies: Coded Allergies: No Known Allergies (Unverified , 07/11/18) Subjective he was comfortable lying in bed, a febrile, nonverbal Objective Vital Signs Last 24 Hour Vital Signs Date Time Temp Pulse Resp B/P (MAP) Pulse Ox O2 Delivery O2 Flow Rate FiO2 07/13/18 16:00 Room Air 07/13/18 16:00 75 07/13/18 15:00 92 17 116/67 (83) 98 07/13/18 14:00 93 19 117/67 (84) 98 07/13/18 13:00 86 16 116/67 (83) 98 07/13/18 12:00 Room Air 07/13/18 12:00 75 07/13/18 12:00 77 07/13/18 12:00 98.5 80 18 94/58 (70) 97 98.5 07/13/18 11:00 69 16 94/57 (69) 98 07/13/18 10:00 79 15 102/60 (74) 98 07/13/18 09:00 82 16 128/66 (86) 96 07/13/18 08:00 Room Air 07/13/18 08:00 98.1 80 16 100/53 (69) 97 98.1 07/13/18 08:00 80 07/13/18 07:00 77 18 124/69 (87) 98 07/13/18 06:30 88 17 135/87 (103) 98 07/13/18 06:00 88 17 119/66 (83) 98 07/13/18 05:30 85 17 109/78 (88) 97 07/13/18 05:00 84 16 136/99 (111) 97 07/13/18 05:00 136/99 07/13/18 04:30 84 17 130/97 (108) 97 07/13/18 04:00 Room Air 07/13/18 04:00 111/76 07/13/18 04:00 98.3 72 17 111/76 (88) 97 98.3 07/13/18 04:00 76 07/13/18 03:30 71 15 115/63 (80) 97 07/13/18 03:00 75 15 107/54 (71) 97 07/13/18 03:00 107/54 07/13/18 02:30 75 15 92/52 (65) 97 07/13/18 02:00 101/60 07/13/18 02:00 77 16 101/60 (74) 97 07/13/18 01:30 82 16 107/64 (78) 97 07/13/18 01:00 123/79 07/13/18 01:00 85 17 123/79 (94) 96 07/13/18 00:30 88 16 112/66 (81) 98 07/13/18 00:00 82 07/13/18 00:00 Room Air 07/13/18 00:00 132/69 07/13/18 00:00 98.0 93 16 132/69 (90) 98 98.0 07/12/18 23:30 82 18 127/64 (85) 97 07/12/18 23:00 89 16 128/77 (94) 97 07/12/18 23:00 128/77 07/12/18 22:30 87 17 112/62 (79) 96 07/12/18 22:00 111/66 07/12/18 22:00 88 16 111/66 (81) 96 07/12/18 21:30 87 16 116/69 (85) 97 Height (Feet): 5 Height (Inches): 6.00 Weight (Pounds): 147 General Appearance: WD/WN, no acute distress HEENT: normocephalic, atraumatic, anicteric, mucous membranes moist, PERRL Respiratory/Chest: chest wall non-tender, lungs clear, normal breath sounds, no respiratory distress, no accessory muscle use Cardiovascular: normal peripheral pulses, normal rate, regular rhythm, no gallop/murmur, no JVD Abdomen: normal bowel sounds, soft, non tender, no organomegaly, non distended , no mass, no scars Extremities: no cyanosis, no clubbing Skin: no rash, no lesions, no ulcers 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0-31.0) H Mean Corpuscular Hemoglobin Concent 34.1 G/DL (32.0-36.0) Red Cell Distribution Width 11.3 % (11.6-14.8) L Platelet Count 98 K/UL (150-450) L Mean Platelet Volume 6.5 FL (6.5-10.1) Neutrophils (%) (Auto) % (45.0-75.0) Lymphocytes (%) (Auto) % (20.0-45.0) Monocytes (%) (Auto) % (1.0-10.0) Eosinophils (%) (Auto) % (0.0-3.0) Basophils (%) (Auto) % (0.0-2.0) Differential Total Cells Counted 100 Neutrophils % (Manual) 75 % (45-75) Lymphocytes % (Manual) 7 % (20-45) L Monocytes % (Manual) 5 % (1-10) Eosinophils % (Manual) 0 % (0-3) Basophils % (Manual) 0 % (0-2) Band Neutrophils 13 % (0-8) H Platelet Estimate Decreased L Platelet Morphology Normal Red Blood Cell Morphology Normal Sodium Level 142 MMOL/L (136-145) Potassium Level 3.5 MMOL/L (3.5-5.1) Chloride Level 111 MMOL/L (98-107) H Carbon Dioxide Level 26 MMOL/L (21-32) Anion Gap 6 mmol/L (5-15) Blood Urea Nitrogen 19 mg/dL (7-18) H Creatinine 1.0 MG/DL (0.55-1.30) Estimat Glomerular Filtration Rate mL/min (>60) Glucose Level 108 MG/DL (74-106) H Calcium Level 8.3 MG/DL (8.5-10.1) L Current Medications Medications (Trade) Dose Ordered Sig/Nahum Route PRN Reason Start Time Stop Time Status Last Admin Dose Admin Acetaminophen (Tylenol) 650 mg Q4H PRN ORAL Mild Pain (Pain Scale 1-3) 07/13/18 15:14 08/10/18 15:13 Chlorhexidine Gluconate (Armida-Hex 2%) 1 applic DAILY@2000 TOPIC 07/13/18 20:00 08/11/18 19:59 Dextrose (Dextrose 50%) 25 ml Q30M PRN IV Hypoglycemia 07/13/18 15:14 08/10/18 15:13 Dextrose (Dextrose 50%) 50 ml Q30M PRN IV Hypoglycemia 07/13/18 15:14 08/10/18 15:13 Docusate Sodium (Colace) 250 mg DAILY ORAL 07/14/18 09:00 08/12/18 08:59 Famotidine (Pepcid) 40 mg DAILY ORAL 07/14/18 09:00 08/11/18 08:59 Meropenem 1 gm/ Sodium Chloride 110 ml @ 220 mls/hr Q8HR IVPB 07/13/18 22:00 07/18/18 07:59 Ondansetron HCl (Zofran) 4 mg Q6H PRN IVP Nausea & Vomiting 07/13/18 15:30 08/10/18 21:29 Sodium Chloride 1,000 ml @ 125 mls/hr Q8H IVLG 07/13/18 15:14 08/10/18 15:13 07/13/18 15:36 Vancomycin HCl (Vanco rx to dose) 1 ea DAILY PRN MISC Per rx protocol 07/14/18 09:00 08/10/18 21:59 Vancomycin HCl 1 gm/Dextrose 275 ml @ 183.708 mls/hr Q24H IVPB 07/14/18 02:00 07/18/18 01:59 Deepti Biggs M.D. Jul 13, 2018 21:26
[2018-07-13] MEDS: Meropenem 1 GM in NS 110 ML IVPB SCH (22:03)
[2018-07-14] MEDS ORDERED: Vancomycin 1 GM in D5W 275 ML IVPB SCH (02:00)
[2018-07-14] MEDS ORDERED: Vancomycin 1250mg/D5W 250ml 250 ML IVPB SCH (02:00)
[2018-07-14 04:00] VITALS: BP 105/63
[2018-07-14] MEDS: Meropenem 1 GM in NS 110 ML IVPB SCH (06:14)
[2018-07-14 07:08] LABS: BASOPHILS % (AUTO) 0.5 % (0.0-2.0); HEMATOCRIT 32.6 % (42.0-52.0); HEMOGLOBIN 11.2 G/DL (14.2-18.0); LYMPHOCYTES % (AUTO) 10.6 % (20.0-45.0); MEAN CORPUSCULAR VOLUME 89 FL (80-99); MONOCYTES % (AUTO) 5.6 % (1.0-10.0); NEUTROPHILS % (AUTO) 82.3 % (45.0-75.0); PLATELET COUNT 103 K/UL (150-450); RED BLOOD COUNT 3.65 M/UL (4.70-6.10); RED CELL DISTRIBUTION WIDTH 10.8 % (11.6-14.8); WHITE BLOOD COUNT 7.9 K/UL (4.8-10.8)
[2018-07-14 07:10] LABS: ANION GAP 6 mmol/L (5-15); BLOOD UREA NITROGEN 12 mg/dL (7-18); CALCIUM 8.2 MG/DL (8.5-10.1); CARBON DIOXIDE 27 MMOL/L (21-32); CHLORIDE 110 MMOL/L (98-107); POTASSIUM 3.4 MMOL/L (3.5-5.1); SODIUM 143 MMOL/L (136-145)
[2018-07-14 08:00] VITALS: BP 113/61
--- NOTE | 2018-07-14 08:24 | Nephrology Progress Note ---
Assessment/Plan Assessment/Plan A/P 1) Septic Shock- likley urosepsis/pyleo - WBC improving on Abx. DC in am on po Abx of ID choice 2) TRUDI- resolved 3) Proctitis- per Gen Surgery. Resolved 4) BPH- condom catheter, appreciate Urology 5) Hypotension- resolved 6) DVT prophylaxsis- lovenox DC Home in AM Subjective Date patient seen: Jul 14, 2018 Time patient seen: 08:22 ROS Limited/Unobtainable: No Allergies: Coded Allergies: No Known Allergies (Unverified , 07/11/18) Subjective Patient awake and alert today. Has underlying dementia per family. Much improved Objective Last 24 Hour Vital Signs Date Time Temp Pulse Resp B/P (MAP) Pulse Ox O2 Delivery O2 Flow Rate FiO2 07/14/18 08:00 98.2 60 20 113/61 (78) 96 98.2 07/14/18 04:00 96.5 65 17 105/63 (77) 96 96.5 07/14/18 04:00 66 07/14/18 00:00 81 07/13/18 21:00 Room Air 07/13/18 20:00 98.0 80 17 136/77 (96) 98 98.0 07/13/18 20:00 77 07/13/18 18:00 98.0 80 17 136/77 (96) 98 98.0 07/13/18 16:00 Room Air 07/13/18 16:00 75 07/13/18 15:00 92 17 116/67 (83) 98 07/13/18 14:00 93 19 117/67 (84) 98 07/13/18 13:00 86 16 116/67 (83) 98 07/13/18 12:00 Room Air 07/13/18 12:00 75 07/13/18 12:00 77 07/13/18 12:00 98.5 80 18 94/58 (70) 97 98.5 07/13/18 11:00 69 16 94/57 (69) 98 07/13/18 10:00 79 15 102/60 (74) 98 07/13/18 09:00 82 16 128/66 (86) 96 Intake and Output 07/13/18 07/14/18 19:00 07:00 Intake Total 120 ml 240 ml Output Total 575 ml 600 ml Balance -455 ml -360 ml Intake Oral 120 ml 240 ml Output Urine Total 575 ml 600 ml # Bowel Movements 2 Laboratory Tests 07/14/18 06:00: White Blood Count 7.9, Red Blood Count 3.65L, Hemoglobin 11.2L, Hematocrit 32.6L , Mean Corpuscular Volume 89, Mean Corpuscular Hemoglobin 30.6, Mean Corpuscular Hemoglobin Concent 34.3, Red Cell Distribution Width 10.8L, Platelet Count 103L, Mean Platelet Volume 7.3, Neutrophils (%) (Auto) 82.3H, Lymphocytes (%) (Auto) 10.6L, Monocytes (%) (Auto) 5.6, Eosinophils (%) (Auto) 1.0, Basophils (%) (Auto) 0.5, Sodium Level 143, Potassium Level 3.4L, Chloride Level 110H, Carbon Dioxide Level 27, Anion Gap 6, Blood Urea Nitrogen 12, Creatinine 1.0, Estimat Glomerular Filtration Rate , Glucose Level 85, Calcium Level 8.2L Height (Feet): 5 Height (Inches): 6.00 Weight (Pounds): 148 General Appearance: no apparent distress, alert EENT: normal ENT inspection Neck: normal alignment, supple Cardiovascular: normal rate, regular rhythm Respiratory/Chest: lungs clear, normal breath sounds Abdomen: non tender, soft Edema: no edema noted Arm (L), no edema noted Arm (R), no edema noted Leg (L), no edema noted Leg (R), no edema noted Pedal (L), no edema noted Pedal (R), no edema noted Generalized Jose Arteaga MD Jul 14, 2018 08:24
[2018-07-14] MEDS ORDERED: Docusate 250mg cap ORAL SCH (09:00)
[2018-07-14 12:00] VITALS: BP 120/72
[2018-07-14] MEDS ORDERED: Meropenem 1 GM in NS 110 ML IVPB SCH (14:00)
--- NOTE | 2018-07-14 15:01 | General Surgery Progress Note ---
General Surgery-Progress Note Subjective Additional Comments leukocytosis resolved. improving Objective Last 24 Hour Vital Signs Date Time Temp Pulse Resp B/P (MAP) Pulse Ox O2 Delivery O2 Flow Rate FiO2 07/14/18 12:00 97.9 64 22 120/72 (88) 98 97.9 07/14/18 09:00 Room Air 07/14/18 08:00 98.2 60 20 113/61 (78) 96 98.2 07/14/18 08:00 56 07/14/18 04:00 96.5 65 17 105/63 (77) 96 96.5 07/14/18 04:00 66 07/14/18 00:00 81 07/13/18 21:00 Room Air 07/13/18 20:00 98.0 80 17 136/77 (96) 98 98.0 07/13/18 20:00 77 07/13/18 18:00 98.0 80 17 136/77 (96) 98 98.0 07/13/18 16:00 Room Air 07/13/18 16:00 75 I&O Intake and Output 07/13/18 07/14/18 19:00 07:00 Intake Total 120 ml 240 ml Output Total 575 ml 600 ml Balance -455 ml -360 ml Intake Oral 120 ml 240 ml Output Urine Total 575 ml 600 ml # Bowel Movements 2 Dressing: other Wound: other Drains: other Cardiovascular: RSR Respiratory: clear Abdomen: soft, flat, non-tender, present bowel sounds Extremities: other Laboratory Tests Test 07/14/18 06:00 White Blood Count 7.9 K/UL (4.8-10.8) Red Blood Count 3.65 M/UL (4.70-6.10) L Hemoglobin 11.2 G/DL (14.2-18.0) L Hematocrit 32.6 % (42.0-52.0) L Mean Corpuscular Volume 89 FL (80-99) Mean Corpuscular Hemoglobin 30.6 PG (27.0-31.0) Mean Corpuscular Hemoglobin Concent 34.3 G/DL (32.0-36.0) Red Cell Distribution Width 10.8 % (11.6-14.8) L Platelet Count 103 K/UL (150-450) L Mean Platelet Volume 7.3 FL (6.5-10.1) Neutrophils (%) (Auto) 82.3 % (45.0-75.0) H Lymphocytes (%) (Auto) 10.6 % (20.0-45.0) L Monocytes (%) (Auto) 5.6 % (1.0-10.0) Eosinophils (%) (Auto) 1.0 % (0.0-3.0) Basophils (%) (Auto) 0.5 % (0.0-2.0) Sodium Level 143 MMOL/L (136-145) Potassium Level 3.4 MMOL/L (3.5-5.1) L Chloride Level 110 MMOL/L (98-107) H Carbon Dioxide Level 27 MMOL/L (21-32) Anion Gap 6 mmol/L (5-15) Blood Urea Nitrogen 12 mg/dL (7-18) Creatinine 1.0 MG/DL (0.55-1.30) Estimat Glomerular Filtration Rate mL/min (>60) Glucose Level 85 MG/DL (74-106) Calcium Level 8.2 MG/DL (8.5-10.1) L Plan Problems: (1) Proctitis (2) Septic shock Assessment & Plan: 82M septic shock likely from acute pyelonephritis. fecal impaction with stercoral proctitis. leukocytosis. UTI. Status post cholecystectomy. No clear biliary dilation. Pancreatic atrophy without acute inflammation. Left perinephric stranding is more pronounced than on the right side. Correlate for any signs or symptoms of pyelonephritis. No urolithiasis or hydronephrosis. Small mid zone right renal cyst. Fecal retention with perirectal edema. Suspect impaction with stercoral proctitis. No free air or abscess. Unremarkable appendix. Prostatomegaly without pathologic bladder distention. Small fatty umbilical hernia. No acute fracture. Fecal impaction with stercoral proctitis. Left perinephric stranding is more pronounced than right. Correlate for signs or symptoms of pyelonephritis. Other incidental findings as detailed above. leukocytosis resolved +BM improving No acute surgical intervention necessary Bowel regimen will follow with recs thank you Dick Bashir Jul 14, 2018 15:01
[2018-07-14 16:00] VITALS: BP 133/79
--- NOTE | 2018-07-14 17:43 | Infectious Diseases Prog Note ---
Assessment/Plan Problems: (1) Acute pyelonephritis Assessment & Plan: with left perinephrial stranding , complicated with sepsis, on meropenem empirically , cultures are negative so far will switch to levaquin (2) Septic shock Assessment & Plan: due to the above , resolved on vacomycin and meropenem with negative blood culture. will stop antibiotics (3) Acute renal failure (ARF) Assessment & Plan: due to sepsis , continue hydration, monitor renal function (4) Dehydration Assessment & Plan: continue IVF for hydration , monitor lytes (5) Acute encephalopathy Assessment & Plan: due to the above, continue hydration ad antibiotics , continue neuro check Subjective ROS Limited/Unobtainable: Yes Allergies: Coded Allergies: No Known Allergies (Unverified , 07/11/18) Subjective he was comfortable lying in bed, a febrile, nonverbal Objective Vital Signs Last 24 Hour Vital Signs Date Time Temp Pulse Resp B/P (MAP) Pulse Ox O2 Delivery O2 Flow Rate FiO2 07/14/18 16:00 97.9 70 20 133/79 (97) 97 97.9 07/14/18 12:00 97.9 64 22 120/72 (88) 98 97.9 07/14/18 09:00 Room Air 07/14/18 08:00 98.2 60 20 113/61 (78) 96 98.2 07/14/18 08:00 56 07/14/18 04:00 96.5 65 17 105/63 (77) 96 96.5 07/14/18 04:00 66 07/14/18 00:00 81 07/13/18 21:00 Room Air 07/13/18 20:00 98.0 80 17 136/77 (96) 98 98.0 07/13/18 20:00 77 07/13/18 18:00 98.0 80 17 136/77 (96) 98 98.0 Height (Feet): 5 Height (Inches): 6.00 Weight (Pounds): 148 General Appearance: WD/WN, no acute distress HEENT: normocephalic, atraumatic, anicteric, mucous membranes moist Respiratory/Chest: chest wall non-tender, lungs clear, normal breath sounds, no respiratory distress, no accessory muscle use Cardiovascular: normal peripheral pulses, normal rate, regular rhythm, no gallop/murmur, no JVD Abdomen: normal bowel sounds, soft, non tender, no organomegaly, non distended , no mass, no scars Extremities: no cyanosis, no clubbing Skin: no rash, no lesions, no ulcers Neurologic/Psychiatric: alert, oriented x 3, responsive Lymphatic: no neck adenopathy, no groin adenopathy Musculoskeletal: normal muscle bulk, no effusion Microbiology Date/Time Source Procedure Growth Status 07/11/18 22:45 Nasal Nares MRSA Culture - Final NO METHICILLIN RESISTANT STAPH AUREUS... Complete 07/12/18 06:10 Indwelling Cath Urine Culture - Preliminary NO GROWTH AFTER 24 HOURS Resulted 07/11/18 23:00 Rectum - Final NO CARBAPENEM-RESISTANT ENTEROBACTERI... Complete 07/11/18 23:00 Rectum VRE Culture - Final NO VANCOMYCIN RESISTANT ENTEROCOCCUS ... Complete Laboratory Tests Test 07/14/18 06:00 White Blood Count 7.9 K/UL (4.8-10.8) Red Blood Count 3.65 M/UL (4.70-6.10) L Hemoglobin 11.2 G/DL (14.2-18.0) L Hematocrit 32.6 % (42.0-52.0) L Mean Corpuscular Volume 89 FL (80-99) Mean Corpuscular Hemoglobin 30.6 PG (27.0-31.0) Mean Corpuscular Hemoglobin Concent 34.3 G/DL (32.0-36.0) Red Cell Distribution Width 10.8 % (11.6-14.8) L Platelet Count 103 K/UL (150-450) L Mean Platelet Volume 7.3 FL (6.5-10.1) Neutrophils (%) (Auto) 82.3 % (45.0-75.0) H Lymphocytes (%) (Auto) 10.6 % (20.0-45.0) L Monocytes (%) (Auto) 5.6 % (1.0-10.0) Eosinophils (%) (Auto) 1.0 % (0.0-3.0) Basophils (%) (Auto) 0.5 % (0.0-2.0) Sodium Level 143 MMOL/L (136-145) Potassium Level 3.4 MMOL/L (3.5-5.1) L Chloride Level 110 MMOL/L (98-107) H Carbon Dioxide Level 27 MMOL/L (21-32) Anion Gap 6 mmol/L (5-15) Blood Urea Nitrogen 12 mg/dL (7-18) Creatinine 1.0 MG/DL (0.55-1.30) Estimat Glomerular Filtration Rate mL/min (>60) Glucose Level 85 MG/DL (74-106) Calcium Level 8.2 MG/DL (8.5-10.1) L Current Medications Medications (Trade) Dose Ordered Sig/Nahum Route PRN Reason Start Time Stop Time Status Last Admin Dose Admin Acetaminophen (Tylenol) 650 mg Q4H PRN ORAL Mild Pain (Pain Scale 1-3) 07/14/18 11:15 08/10/18 15:13 Chlorhexidine Gluconate (Armida-Hex 2%) 1 applic DAILY@2000 TOPIC 07/14/18 20:00 08/11/18 19:59 Dextrose (Dextrose 50%) 25 ml Q30M PRN IV Hypoglycemia 07/14/18 11:15 08/10/18 15:13 Dextrose (Dextrose 50%) 50 ml Q30M PRN IV Hypoglycemia 07/14/18 11:15 08/10/18 15:13 Docusate Sodium (Colace) 250 mg DAILY ORAL 07/15/18 09:00 08/12/18 08:59 Famotidine (Pepcid) 40 mg DAILY ORAL 07/15/18 09:00 08/11/18 08:59 Meropenem 1 gm/ Sodium Chloride 110 ml @ 220 mls/hr Q8HR IVPB 07/14/18 14:00 07/18/18 07:59 07/14/18 13:24 Ondansetron HCl (Zofran) 4 mg Q6H PRN IVP Nausea & Vomiting 07/14/18 11:30 08/10/18 11:29 Sodium Chloride 1,000 ml @ 125 mls/hr Q8H IVLG 07/14/18 11:30 08/10/18 11:29 07/14/18 11:42 Vancomycin HCl (Vanco rx to dose) 1 ea DAILY PRN MISC Per rx protocol 07/14/18 11:30 08/13/18 11:29 Vancomycin HCl 1 gm/Dextrose 275 ml @ 183.708 mls/hr Q24H IVPB 07/15/18 02:00 07/18/18 01:59 Deepti Biggs M.D. Jul 14, 2018 17:43
[2018-07-14 20:00] VITALS: BP 133/76
[2018-07-14] MEDS ORDERED: Dyna-Hex 2% Top Sol 2oz TOPIC SCH (20:00)
[2018-07-15] VITALS: BP 129/68
[2018-07-15] MEDS ORDERED: Vancomycin 1 GM in D5W 275 ML IVPB SCH (02:00)
[2018-07-15 04:00] VITALS: BP 142/72
[2018-07-15 07:35] LABS: BASOPHILS % (AUTO) 0.6 % (0.0-2.0); EOSINOPHILS % (AUTO) 4.2 % (0.0-3.0); HEMATOCRIT 36.8 % (42.0-52.0); HEMOGLOBIN 12.7 G/DL (14.2-18.0); LYMPHOCYTES % (AUTO) 15.7 % (20.0-45.0); MEAN CORPUSCULAR VOLUME 91 FL (80-99); MONOCYTES % (AUTO) 7.5 % (1.0-10.0); PLATELET COUNT 103 K/UL (150-450); RED BLOOD COUNT 4.03 M/UL (4.70-6.10); RED CELL DISTRIBUTION WIDTH 11.3 % (11.6-14.8); WHITE BLOOD COUNT 7.7 K/UL (4.8-10.8)
[2018-07-15 08:00] VITALS: BP 141/78
[2018-07-15 08:02] LABS: ANION GAP 5 mmol/L (5-15); BLOOD UREA NITROGEN 12 mg/dL (7-18); CALCIUM 8.5 MG/DL (8.5-10.1); CARBON DIOXIDE 28 MMOL/L (21-32); CHLORIDE 110 MMOL/L (98-107); POTASSIUM 4.4 MMOL/L (3.5-5.1); SODIUM 143 MMOL/L (136-145)
--- NOTE | 2018-07-15 08:30 | Consultation ---
Consult Note Consult Note Hematology Consultation JONATHON ARCE: 07/15/18 RFC: Thrombocytopenia CONSULTING PHYSICIAN: Josse Fletcher M.D. REQUESTING PHYSICIAN: Jose Arteaga M.D. ID 82-year-old male with past medical history of benign prostatic hypertrophy, status post resection and recurrent UTI, was brought in by his family for alterationin his mental status, which has been progressive. The patient in the emergency room was noticed to be altered with significant leukocytosis of 22.7 and hypotension concerning for sepsis. So, he was started on IV antibiotics treatment and Infectious Disease consultation was requested for antibiotics treatment and further management. He also had difficulty inserting Shannon catheter in the emergency room, which might be due to recurrent enlarged prostate or ureteral stricture, which has caused his urine infection and possibly pyelonephritis. The patient himself is more alert, but poor historian, could not provide any history. Currently is on levaquin, noted to have a low plts count and heme was consulted. REVIEW OF SYSTEMS: 14-point of systems reviewed were all negative apart from the one I mentioned above in my History and Physical. PAST MEDICAL HISTORY: Significant for recurrent UTI and benign prostatic hypertrophy. PAST SURGICAL HISTORY: He had prostate resection eight years ago. FAMILY HISTORY: Significant for diabetes and hypertension. SOCIAL HISTORY: The patient lives at home with daughter and unemployed. Denied using any drugs, tobacco, or alcohol. ALLERGIES: No known drug allergy. MEDICATIONS: The patient was given Unasyn in the emergency room. For the rest of his medications, please refer to MAR. LABORATORY DATA: Laboratory Tests Test 07/15/18 07:10 White Blood Count 7.7 K/UL (4.8-10.8) Red Blood Count 4.03 M/UL (4.70-6.10) L Hemoglobin 12.7 G/DL (14.2-18.0) L Hematocrit 36.8 % (42.0-52.0) L Mean Corpuscular Volume 91 FL (80-99) Mean Corpuscular Hemoglobin 31.5 PG (27.0-31.0) H Mean Corpuscular Hemoglobin Concent 34.4 G/DL (32.0-36.0) Red Cell Distribution Width 11.3 % (11.6-14.8) L Platelet Count 103 K/UL (150-450) L Mean Platelet Volume 7.3 FL (6.5-10.1) Neutrophils (%) (Auto) 72.0 % (45.0-75.0) Lymphocytes (%) (Auto) 15.7 % (20.0-45.0) L Monocytes (%) (Auto) 7.5 % (1.0-10.0) Eosinophils (%) (Auto) 4.2 % (0.0-3.0) H Basophils (%) (Auto) 0.6 % (0.0-2.0) Sodium Level 143 MMOL/L (136-145) Potassium Level 4.4 MMOL/L (3.5-5.1) Chloride Level 110 MMOL/L (98-107) H Carbon Dioxide Level 28 MMOL/L (21-32) Anion Gap 5 mmol/L (5-15) Blood Urea Nitrogen 12 mg/dL (7-18) Creatinine 1.0 MG/DL (0.55-1.30) Estimat Glomerular Filtration Rate mL/min (>60) Glucose Level 96 MG/DL (74-106) Calcium Level 8.5 MG/DL (8.5-10.1) IMAGING DATA: 1. Head CT scan showed no acute intracranial process. 2. Chest x-ray showed subsegmental left basilar atelectasis. 3. Abdominal pelvic CT scan showed fecal impaction with stercoral proctitis, left perinephric stranding more pronounced than right, possible pyelonephritis. PHYSICAL EXAMINATION: VITAL SIGNS: reviewed GENERAL: An elderly male, lying in bed, awake, alert, nonverbal, not in acute distress. HEENT: Normocephalic and atraumatic. Pupils reactive to light. Moist oral mucosa. NECK: Supple. No lymphadenopathy. CARDIOVASCULAR: Regular rate and rhythm. No murmur or gallop. LUNGS: He had diminished breathing sound at the bases. No wheezing or rhonchi. ABDOMEN: Soft, nontender, nondistended. Normal bowel sounds. No hepatosplenomegaly or ascites. EXTREMITIES: No edema or cyanosis. ASSESSMENT AND RECOMMENDATION: 1. Thrombocytopenia currently is lower, potentialy related to infection of acute pyelonephritis with left perinephric stranding complicated with sepsis. --> could also be related to medications, temporarily decreased will uptrend once off them --> as per ID, agree with current abx, low risk of drug-induced thrombocytopenia --> imaging has been reviewed at this time, no abscess noted besides stranding 2. Leukocytosis is related to infeciton as well with septic shock due to the above. --> initially on vanc/zosyn and now on levaquin --> peripheral smear reviewed and is wnl 3. Acute renal failure due to sepsis. Continue hydration. Monitor renal function. --> s/p ivf administration 4. Dehydration. Continue IV fluid for hydration. Monitor electrolytes. 5. Acute encephalopathy due to the above. Continue hydration and antibiotics. Continue neuro check. --> likely to improve once infection under control Greatly appreciate consultation! Josse Fletcher MD Jul 15, 2018 08:30
--- NOTE | 2018-07-15 08:55 | Nephrology Progress Note ---
Assessment/Plan Assessment/Plan A/P 1) Septic Shock- lurosepsis/pyleo -DC on po FQ per ID 2) TRUDI- resolved 3) Proctitis- per Gen Surgery. Resolved 4) Disposition- leaving to [place] in 1 wek. DC home with walker 5) Hypotension- resolved 6) DVT prophylaxsis- lovenox DC Home Subjective Date patient seen: Jul 15, 2018 Time patient seen: 08:51 ROS Limited/Unobtainable: No Allergies: Coded Allergies: No Known Allergies (Unverified , 07/11/18) Subjective Patient improved. Stable for DC Objective Last 24 Hour Vital Signs Date Time Temp Pulse Resp B/P (MAP) Pulse Ox O2 Delivery O2 Flow Rate FiO2 07/15/18 08:00 97.7 72 20 141/78 (99) 95 97.7 07/15/18 04:00 98.7 57 19 142/72 (95) 96 98.7 07/15/18 00:00 98.1 57 19 129/68 (88) 96 98.1 07/14/18 21:00 Room Air 07/14/18 20:00 98.7 72 20 133/76 (95) 96 98.7 07/14/18 16:00 97.9 70 20 133/79 (97) 97 97.9 07/14/18 12:00 97.9 64 22 120/72 (88) 98 97.9 07/14/18 09:00 Room Air Intake and Output 07/14/18 07/15/18 19:00 07:00 Intake Total 360 ml 1125 ml Balance 360 ml 1125 ml Intake Oral 360 ml IV Total 1125 ml # Voids 1 # Bowel Movements 1 Laboratory Tests 07/15/18 07:10: White Blood Count 7.7, Red Blood Count 4.03L, Hemoglobin 12.7L, Hematocrit 36.8L , Mean Corpuscular Volume 91, Mean Corpuscular Hemoglobin 31.5H, Mean Corpuscular Hemoglobin Concent 34.4, Red Cell Distribution Width 11.3L, Platelet Count 103L, Mean Platelet Volume 7.3, Neutrophils (%) (Auto) 72.0, Lymphocytes (%) (Auto) 15.7L, Monocytes (%) (Auto) 7.5, Eosinophils (%) (Auto) 4.2H, Basophils (%) (Auto) 0.6, Sodium Level 143, Potassium Level 4.4, Chloride Level 110H, Carbon Dioxide Level 28, Anion Gap 5, Blood Urea Nitrogen 12, Creatinine 1.0, Estimat Glomerular Filtration Rate , Glucose Level 96, Calcium Level 8.5 Height (Feet): 5 Height (Inches): 6.00 Weight (Pounds): 148 General Appearance: no apparent distress, alert EENT: normal ENT inspection Neck: normal alignment, supple Cardiovascular: normal rate, regular rhythm Respiratory/Chest: lungs clear, normal breath sounds Abdomen: non tender, soft Edema: no edema noted Arm (L), no edema noted Arm (R), no edema noted Leg (L), no edema noted Leg (R), no edema noted Pedal (L), no edema noted Pedal (R), no edema noted Generalized Jose Arteaga MD Jul 15, 2018 08:55
--- NOTE | 2018-07-15 08:57 | Discharge Instructions ---
Discharge Instructions Discharge Instructions Services at Discharge: day care Resume Normal Activity?: No Activity: light activity Follow Up Orders DC home on po antibiotics Patient flying back to [place] in 1 week For Congestive Heart Failure Reminder Report to your physician any weight gain of 5 pounds or more in one week. Jose Arteaga MD Jul 15, 2018 08:56
[2018-07-15] MEDS ORDERED: Docusate 250mg cap ORAL SCH (09:00)
--- NOTE | 2018-07-15 09:57 | General Surgery Progress Note ---
General Surgery-Progress Note Subjective Symptoms: improved, passing flatus Objective Last 24 Hour Vital Signs Date Time Temp Pulse Resp B/P (MAP) Pulse Ox O2 Delivery O2 Flow Rate FiO2 07/15/18 08:00 97.7 72 20 141/78 (99) 95 97.7 07/15/18 04:00 98.7 57 19 142/72 (95) 96 98.7 07/15/18 00:00 98.1 57 19 129/68 (88) 96 98.1 07/14/18 21:00 Room Air 07/14/18 20:00 98.7 72 20 133/76 (95) 96 98.7 07/14/18 16:00 97.9 70 20 133/79 (97) 97 97.9 07/14/18 12:00 97.9 64 22 120/72 (88) 98 97.9 I&O Intake and Output 07/14/18 07/15/18 19:00 07:00 Intake Total 360 ml 1125 ml Balance 360 ml 1125 ml Intake Oral 360 ml IV Total 1125 ml # Voids 1 # Bowel Movements 1 Drains: none Cardiovascular: RSR Respiratory: clear Abdomen: soft, flat, non-tender, present bowel sounds Extremities: no cyanosis Laboratory Tests Test 07/15/18 07:10 White Blood Count 7.7 K/UL (4.8-10.8) Red Blood Count 4.03 M/UL (4.70-6.10) L Hemoglobin 12.7 G/DL (14.2-18.0) L Hematocrit 36.8 % (42.0-52.0) L Mean Corpuscular Volume 91 FL (80-99) Mean Corpuscular Hemoglobin 31.5 PG (27.0-31.0) H Mean Corpuscular Hemoglobin Concent 34.4 G/DL (32.0-36.0) Red Cell Distribution Width 11.3 % (11.6-14.8) L Platelet Count 103 K/UL (150-450) L Mean Platelet Volume 7.3 FL (6.5-10.1) Neutrophils (%) (Auto) 72.0 % (45.0-75.0) Lymphocytes (%) (Auto) 15.7 % (20.0-45.0) L Monocytes (%) (Auto) 7.5 % (1.0-10.0) Eosinophils (%) (Auto) 4.2 % (0.0-3.0) H Basophils (%) (Auto) 0.6 % (0.0-2.0) Sodium Level 143 MMOL/L (136-145) Potassium Level 4.4 MMOL/L (3.5-5.1) Chloride Level 110 MMOL/L (98-107) H Carbon Dioxide Level 28 MMOL/L (21-32) Anion Gap 5 mmol/L (5-15) Blood Urea Nitrogen 12 mg/dL (7-18) Creatinine 1.0 MG/DL (0.55-1.30) Estimat Glomerular Filtration Rate mL/min (>60) Glucose Level 96 MG/DL (74-106) Calcium Level 8.5 MG/DL (8.5-10.1) Plan Problems: (1) Proctitis (2) Septic shock Assessment & Plan: 82M septic shock likely from acute pyelonephritis. fecal impaction with stercoral proctitis. leukocytosis. UTI. Status post cholecystectomy. No clear biliary dilation. Pancreatic atrophy without acute inflammation. Left perinephric stranding is more pronounced than on the right side. Correlate for any signs or symptoms of pyelonephritis. No urolithiasis or hydronephrosis. Small mid zone right renal cyst. Fecal retention with perirectal edema. Suspect impaction with stercoral proctitis. No free air or abscess. Unremarkable appendix. Prostatomegaly without pathologic bladder distention. Small fatty umbilical hernia. No acute fracture. Fecal impaction with stercoral proctitis. Left perinephric stranding is more pronounced than right. Correlate for signs or symptoms of pyelonephritis. Other incidental findings as detailed above. leukocytosis resolved +BM improving No acute surgical intervention necessary Bowel regimen will follow with recs thank you Dick Bashir Jul 15, 2018 09:57
[2018-07-15] MEDS ORDERED: Flu Vaccine (Alfuria) for Pts Less than 65 Years old IM ONE (10:15)
[2018-07-15] MEDS ORDERED: LEVAQUIN500 MG ORAL (10:32)
[2018-07-15] MEDS ORDERED: Flu Vaccine High-Dose for Pts 65 Years and Older IM ONE (11:30)
[2018-07-15] MEDS ORDERED: Pneumococcal Vaccine 25mcg/0.5ml IM ONE (11:30)
--- NOTE | 2018-07-15 16:23 | Cardiology Report ---
APPROVED REPORT EKG Measurement Heart [id number] [id number] Normal sinus rhythm Normal ECG
--- NOTE | 2018-07-17 14:47 | Discharge Summary ---
Discharge Summary Discharge Summary _ DATE OF ADMISSION: 07/11/2018 DATE OF DISCHARGE: 07/15/2018 CONSULTANTS: Dr. Dick Humphreys BRIEF HOSPITAL COURSE: Patient is an 82-year-old gentleman, was brought by EMS for evaluation and management due to progressive deterioration in mental status throughout the day. He has medical history significant for BPH and recurrent UTI. On evaluation at ED, and work showed leukocytosis, WBC was 22, hemoglobin and hematocrit stable. Creatinine was 2.1, BUN 34. CT of the head showed atrophic changes without evident CVA or intracranial hemorrhage. Blood pressure dropped. A central line was inserted to the right internal jugular vein. They had difficulty placing Shannon catheter at ED. He was admitted to ICU for sepsis. He was eventually started on IV pressors. He was continued on IV hydration. He was started on meropenem and vancomycin empirically pending culture results. Surgery was called to evaluate. Patient status post cholecystectomy. There was no biliary dilatation. Pancreas without acute inflammation. Left perinephric stranding is more pronounced on the right. He had fecal retention suspect impaction with stercoral proctitis. There was no free air or abscess. He was given bowel regimen. Fleet enema daily. There was no acute surgical intervention necessary. Urologist was consulted. Multiple attempts were made to pass a Shannon catheter, however, was met with resistance. Condom catheter was placed. A bladder scan performed at bedside revealed no significant evidence of retention with a postvoid received wall of 66 mL. Appeared patient is able to urinate on his own. There was no evidence of retention requiring Shannon catheter. He he was able to be weaned off the Levophed. Blood pressure improved. He was transferred to telemetry. Thrombocytopenia, potentially related to infection. WBC improved. Cultures did not isolate any growth. Vancomycin and meropenem were discontinued. Antibiotic was switched to Levaquin. He was then cleared for discharge home. FINAL DIAGNOSES: Septic shock Acute kidney injury, resolved Proctitis Fecal impaction Hypotension, resolved Thrombocytopenia Dehydration Acute encephalopathy DISPOSITION: Patient was discharged home. Patient leaving to [place] in a week. Discharged home with walker DISCHARGE MEDICATIONS: Continue Levaquin 250 mg by mouth twice a day for 1 week. DISCHARGE INSTRUCTIONS: Follow up with PCP in a week. I have been assigned to dictate discharge summary on this account, and I was not involved in the patient's management. Aparna Baron NP Jul 17, 2018 14:47
== END 2018-07-15 11:20 | disposition home or self-care (01) | DRG 871 ==
LOC: EDBD 17:26 → EMR 19:30 → 2E 19:50 → EDBEDREQ 20:28 → EDBEDREQSVC 21:17 → EDBEDREQ 21:18 → SDSOVERFLO 21:24 → EDBEDREQ 21:32 → ICU 21:40 → 2E 07-13 15:12 → 4E 07-14 11:12
PROC: 05HM33Z Insertion of Infusion Device into Right Internal Jugular Vein, Percutaneous Approach (ICD-10-PCS; principal; 2018-07-11)
DX: A41.9 Sepsis, unspecified organism (principal); R65.21 Severe sepsis with septic shock; N17.9 Acute kidney failure, unspecified; G93.40 Encephalopathy, unspecified; N10 Acute pyelonephritis; K62.89 Other specified diseases of anus and rectum; K56.41 Fecal impaction; D69.6 Thrombocytopenia, unspecified; E86.0 Dehydration; N40.1 Benign prostatic hyperplasia with lower urinary tract symptoms; R33.8 Other retention of urine; Z90.49 Acquired absence of other specified parts of digestive tract; G30.9 Alzheimer's disease, unspecified; F02.80 Dementia in other diseases classified elsewhere, unspecified severity, without behavioral disturbance, psychotic disturbance, mood disturbance, and anxiety; Z23 Encounter for immunization
CPT/HCPCS: 36415; 70450; 71045; 74176; 80048; 80053; 82550; 82553; 83605; 84484; 85007; 85025; 86703; 86705; 86709; 86803; 87040; 87081; 87086; 87340; 90732; 93005; 96374; 96375; 99291; J2310; J8499